=== PATIENT | male | born 1975 | race Caucasian/White ===

== ENCOUNTER 2024-08-23 05:48 | Inpatient (IN) | payer BC, SELFPAY ==
[2024-08-23] VITALS (18 sets, daily range): BP systolic 107–148; BP diastolic 56–105; PULSE 80–104; RESP 18–20; TEMP 36.5–36.6; O2SAT 88–97; BMI 25.8; BMI 24.0
--- NOTE | 2024-08-23 05:51 | XR_ITS ---
PROCEDURE INFORMATION: Exam: XR Chest Exam date and time: 08/23/2024 5:56 AM Age: 49 years old Clinical indication: Shortness of breath; Additional info: SOA TECHNIQUE: Imaging protocol: Radiologic exam of the chest. Views: 1 view. COMPARISON: No relevant prior studies available. FINDINGS: Lungs: Unremarkable. No consolidation. Pleural spaces: Flattening of the bilateral diaphragms with slight blunting of the bilateral costophrenic angles. Heart/Mediastinum: Unremarkable. No cardiomegaly. Bones/joints: Unremarkable. IMPRESSION: Hyperinflated lungs with possible small bilateral pleural effusions. No focal consolidation. Nonspecific findings.
--- NOTE | 2024-08-23 05:55 | ECG_ITS ---
APPROVED REPORT Exam: Resting ECG HR:105 bpm ECG Measurements Heart Rate 105 AXES SD 136 P 76 QRSd 94 QRS 88 QT 342 T 59 QTc 403 Conclusion SINUS TACHYCARDIA MODERATE ST DEPRESSION [0.05+ mV ST DEPRESSION] ABNORMAL ECG UNCONFIRMED REPORT Electronically signed by : NAILA HAYES, 08/25/2024 05:35:26
--- NOTE | 2024-08-23 05:57 | ED_ITS ---
Discharge Plan Disposition Patient Disposition: Admitted Chief Complaint: Shortness of Breath/Dyspnea Referrals Follow up/Referrals: Kim Willis APRN [Primary Care Provider] - See instructions Clinical Impressions Clinical Impression: Acute exacerbation of chronic obstructive pulmonary disease, Acute hypoxic respiratory failure Print Language Print Language: Hebrew Discharge ED Provider: Alton Sy <Alton Sy MD - Last Filed: 08/23/24 06:51> General Chief Complaint: Shortness of Breath/Dyspnea Stated Complaint: SOA Time Seen by Provider: 08/23/24 05:51 History of Present Illness HPI narrative: 49-year-old male with history of stage IV COPD was not on any home oxygen because according to he always passes walk test presents to the ER with severe shortness of breath, wheezing. reports for the last 24 hours he has intermittently had severe shortness of breath. Patient supports this statement. He denies any chest pain, headache, dizziness, nausea, vomiting, diarrhea, or abdominal pain. He denies fevers or chills. Patient has been using all of his multiple nebulized medications including budesonide, albuterol, rescue inhaler, etc. aggressively through the day without improvement of symptoms. When he presented to the ER, he was pursed lip breathing, red in the face, 87% on room air. Related Data Allergies Allergy/AdvReac Type Severity Reaction Status Date / Time No Known Allergies Allergy Unverified 10/28/17 14:31 PFS <Alton Sy MD - Last Filed: 08/23/24 06:51> [facility] Disclaimer: The information contained in this section may have been updated after the patient was seen, as this information can be updated by other users. Social History (Updated 08/23/24 @ 06:51 by Alton Sy MD) Smoking Status: Current some day smoker alcohol intake: never current occupational status: other Travel in the last 8 weeks: None <Alton Sy MD - Last Filed: 08/23/24 06:51> ROS Obtained: Yes All systems reviewed & no additional complaints except as documented Positive ROS per HPI Physical Exam <Alton Sy MD - Last Filed: 08/23/24 06:51> General General appearance: alert Comment: Patient appears to be in respiratory distress, pursed lip breathing, red in the face Head Head exam: atraumatic and normocephalic Eye Eye exam: Present PERRL and EOMI ENT ENT exam: Present mucous membranes moist Neck Neck exam: Present normal inspection and full ROM Chest Chest inspection: Present symmetric chest wall rise Respiratory Respiratory exam: Present respiratory distress (Significantly increased work of breathing), wheezes (Inspiratory and expiratory), accessory muscle use, prolonged expiratory phase and other (No rhonchi or rales); Absent stridor Cardiovascular Cardiovascular exam: Present normal rhythm and tachycardia Abdominal Exam Abdominal exam: Present soft; Absent distention or tenderness Extremities Exam Extremities exam: Present full ROM and other (2+ pulses in all extremities); Absent edema Neurological Exam Neurological exam: Present alert and oriented X3; Absent motor sensory deficit Psychiatric Psychiatric exam: Present normal affect and normal mood Skin Skin exam: Present warm and dry HEART Score <Alton Sy MD - Last Filed: 08/23/24 06:51> HEART Score HEART Score assessment performed?: Yes History (anamnesis): Slightly suspicious ECG: Non-specific disturbance Age: 45-65 years Risk factors: 1-2 risk factors Troponin: </= normal limit HEART Score: 3 <Kee Daniels MD - Last Filed: 08/23/24 08:34> HEART Score HEART Score: 3 Critical Care <Alton Sy MD - Last Filed: 08/23/24 06:51> Critical Care Time Critical Care Time: No <Kee Daniels MD - Last Filed: 08/23/24 08:34> Critical Care Time Critical Care Time: Yes Attestation: On 08/23/24, the high probability of a clinically significant, sudden or life threatening deterioration of the following system(s) required my full and direct attention, intervention and personal management. The time I documented below is in addition to time spent performing reported procedures but includes the following listed in this critical care notation. Total Time Total Critical Care Time: 35 Medical Decision Making <Alton Sy MD - Last Filed: 08/23/24 06:51> Sunday Inquiry Pt receiving controlled substance: No Vital Signs Vital Signs: 08/23/24 05:49 08/23/24 06:00 08/23/24 06:04 Temperature 97.9 F Temperature Source Oral Pulse Rate 95 H 94 H Pulse Rate [Right Radial] 88 Respiratory Rate 20 Blood Pressure 148/85 H Blood Pressure [Right Arm] 141/95 H Blood Pressure Mean [Right Arm] 110 Blood Pressure Source [Right Arm] Automatic Cuff 02 Sat by Pulse Oximetry 88 L 97 Oxygen Delivery Method Room Air 08/23/24 06:04 08/23/24 06:11 08/23/24 06:11 Temperature Temperature Source Pulse Rate 92 H 98 H 96 H Pulse Rate [Right Radial] Respiratory Rate Blood Pressure Blood Pressure [Right Arm] Blood Pressure Mean [Right Arm] Blood Pressure Source [Right Arm] 02 Sat by Pulse Oximetry Oxygen Delivery Method 08/23/24 06:18 08/23/24 06:18 08/23/24 06:30 Temperature Temperature Source Pulse Rate 98 H 95 H 99 H Pulse Rate [Right Radial] Respiratory Rate Blood Pressure 144/96 H Blood Pressure [Right Arm] Blood Pressure Mean [Right Arm] Blood Pressure Source [Right Arm] 02 Sat by Pulse Oximetry 95 Oxygen Delivery Method 08/23/24 07:00 08/23/24 07:30 08/23/24 08:01 Temperature Temperature Source Pulse Rate 97 H 99 H 96 H Pulse Rate [Right Radial] Respiratory Rate Blood Pressure 107/56 L 143/87 H 115/63 Blood Pressure [Right Arm] Blood Pressure Mean [Right Arm] Blood Pressure Source [Right Arm] 02 Sat by Pulse Oximetry 96 94 L 92 L Oxygen Delivery Method Room Air Room Air Room Air Lab Data Labs: Lab Results 08/23/24 05:55: NT-Pro-B Natriuret Pep < 20.0 08/23/24 05:57: WBC 5.8, RBC 4.53 L, Hgb 14.1, Hct 44.0, MCV 97.2 H, MCH 31.2, MCHC 32.1, RDW 14.4, Plt Count 288, MPV 7.2 L, Neut % (Auto) 57.2, Lymph % (Auto) 31.1, [place] % (Auto) 7.4, Eos % (Auto) 2.5, Baso % (Auto) 1.9, Neut # (Auto) 3.3, Lymph # (Auto) 1.8, [place] # (Auto) 0.4, Eos # (Auto) 0.1, Baso # (Auto) 0.1, Sodium 138, Potassium 4.3, Chloride 105, Carbon Dioxide 29, Anion Gap 8.3, BUN 13, Creatinine 0.70, Estimated Creat Clear 134, Estimated GFR 121, Est GFR ( Amer) 146, Glucose 96, Calcium 9.4, Total Bilirubin 0.5, AST 38, ALT 23, Alkaline Phosphatase 95, Troponin I < 0.01, Total Protein 7.7, Albumin 4.1, Globulin 3.6 H, Albumin/Globulin Ratio 1.1 08/23/24 06:12: VBG pH 7.33, VBG pCO2 47.4, VBG pO2 102.8 H, VBG HCO3 24.4, VBG Total CO2 25.9, VBG O2 Saturation 97.3 H, VBG Base Excess -1.5, VBG Lactic Acid 1.2 08/23/24 05:57 08/23/24 05:57 Response Orders (Tests/Meds): ED MEDICATIONS Generic Name Dose Route Start Last Admin Trade Name Freq PRN Reason Stop Dose Admin Albuterol/Ipratropium 3 ml 08/23/24 08:30 Ipratropium/Albuterol 3 Ml Neb 08/23/24 08:31 ONCE ONE Doxycycline Hyclate 100 mg/ 250 mls @ 166.667 mls/hr 08/23/24 08:28 Sodium Chloride IV 08/23/24 08:29 ONCE ONE Discontinued Medications Generic Name Dose Route Start Last Admin Trade Name Freq PRN Reason Stop Dose Admin Albuterol/Ipratropium 9 ml 08/23/24 05:51 08/23/24 06:04 Ipratropium/Albuterol 3 Ml Neb 08/23/24 05:52 9 ml ONCE ONE Administration Iopamidol 80 ml 08/23/24 06:55 08/23/24 06:56 Iopamidol-370 (76%);100ml Bottle IV 08/23/24 06:56 80 ml ONCE ONE Administration Methylprednisolone Sodium Succinate 125 mg 08/23/24 05:51 08/23/24 06:08 Methylprednisolone Sod Succ 125mg Vial IV 08/23/24 05:52 125 mg ONCE ONE Administration Sodium Chloride 50 ml 08/23/24 06:55 08/23/24 06:56 0.9 % Sodium Chloride 50 Ml Vial IV 08/23/24 06:56 50 ml ONCE ONE Administration Sodium Chloride 10 ml 08/23/24 06:55 08/23/24 06:56 Sodium Chloride 0.9% 10ml Syr (Rad Only) IV 08/23/24 06:56 10 ml ONCE ONE Administration ORDERS Category Date Time Status CT angio chest PE protocol Stat Cat Scan 08/23/24 06:24 Completed CXR --portable [XR chest portable] Stat Exams 08/23/24 05:51 Taken BNP [NT Pro Brain Natriuretic Pep.] Stat Lab 08/23/24 05:55 Completed CBC w/Auto Diff [Complete Blood Count Auto Diff] Stat Lab 08/23/24 05:57 Completed CMP [Comprehensive Metabolic Panel] Stat Lab 08/23/24 05:57 Completed Full Resp Panel w/COVID ([facility]) Routine Lab 08/23/24 06:11 Received HIV (1&2) Antibody Rapid Stat Lab 08/23/24 05:57 Received Hep C Ab with Reflex to RNA Stat Lab 08/23/24 05:57 Received Trop I [Troponin I] Stat Lab 08/23/24 05:57 Completed Troponin I Q3H Lab 08/23/24 09:00 Ordered Troponin I Q3H Lab 08/23/24 12:00 Ordered VBG [Venous Blood Gas] Stat RT 08/23/24 06:12 Completed MDM Narrative Medical Decision Narrative: In summary, this 49-year-old male with advanced COPD presents to the emergency department today with shortness of breath. On initial evaluation patient is in obvious respiratory distress with prolonged expiratory phase, accessory muscle use, hypoxic, red in the face, pursed lip breathing, but GCS 15, alert, oriented, wheezing throughout the lung iniguez, tachycardic, no peripheral edema, remainder of exam benign. Differential diagnosis includes but is not limited to ACS, COPD exacerbation, pneumonia, pneumothorax, viral syndrome, hypercarbia, hypoxia. Based on these concerns, I ordered cardiac workup, serum labs, VBG, breathing treatments. ECG personally interpreted demonstrates sinus tachycardia, rate 105, normal axis, normal NC and QTc, no STEMI. Patient received DuoNebs, Solu-Medrol initially for treatment. Labs personally reviewed demonstrate no leukocytosis or anemia, platelets normal at 288, VBG with normal pH, no hypercarbia, this does increase my suspicion for other etiology of patient's shortness of breath including the possibility of PE since patient is tachycardic and hypoxic. CTA PE added to workup. CMP nonactionable. proBNP undetectably low at less than 20. Reassuring against fluid overload. Initial troponin undetectably low at less than 0.01. XR personally interpreted demonstrates hyperinflation of the lungs without discrete focal airspace disease, patient does have slight blunting of the left costophrenic angle, possible small pleural effusion. Radiology read pending Radiology studies pending at the time of physician shift change. Patient handed off to Dr. Daniels for further management and disposition. <Kee Daniels MD - Last Filed: 08/23/24 08:34> Vital Signs Vital Signs: 08/23/24 05:49 08/23/24 06:00 08/23/24 06:04 Temperature 97.9 F Temperature Source Oral Pulse Rate 95 H 94 H Pulse Rate [Right Radial] 88 Respiratory Rate 20 Blood Pressure 148/85 H Blood Pressure [Right Arm] 141/95 H Blood Pressure Mean [Right Arm] 110 Blood Pressure Source [Right Arm] Automatic Cuff 02 Sat by Pulse Oximetry 88 L 97 Oxygen Delivery Method Room Air 08/23/24 06:04 08/23/24 06:11 08/23/24 06:11 Temperature Temperature Source Pulse Rate 92 H 98 H 96 H Pulse Rate [Right Radial] Respiratory Rate Blood Pressure Blood Pressure [Right Arm] Blood Pressure Mean [Right Arm] Blood Pressure Source [Right Arm] 02 Sat by Pulse Oximetry Oxygen Delivery Method 08/23/24 06:18 08/23/24 06:18 08/23/24 06:30 Temperature Temperature Source Pulse Rate 98 H 95 H 99 H Pulse Rate [Right Radial] Respiratory Rate Blood Pressure 144/96 H Blood Pressure [Right Arm] Blood Pressure Mean [Right Arm] Blood Pressure Source [Right Arm] 02 Sat by Pulse Oximetry 95 Oxygen Delivery Method 08/23/24 07:00 08/23/24 07:30 08/23/24 08:01 Temperature Temperature Source Pulse Rate 97 H 99 H 96 H Pulse Rate [Right Radial] Respiratory Rate Blood Pressure 107/56 L 143/87 H 115/63 Blood Pressure [Right Arm] Blood Pressure Mean [Right Arm] Blood Pressure Source [Right Arm] 02 Sat by Pulse Oximetry 96 94 L 92 L Oxygen Delivery Method Room Air Room Air Room Air Lab Data Lab results reviewed: Yes I reviewed the patient's lab results. Labs: Lab Results 08/23/24 05:55: NT-Pro-B Natriuret Pep < 20.0 08/23/24 05:57: WBC 5.8, RBC 4.53 L, Hgb 14.1, Hct 44.0, MCV 97.2 H, MCH 31.2, MCHC 32.1, RDW 14.4, Plt Count 288, MPV 7.2 L, Neut % (Auto) 57.2, Lymph % (Auto) 31.1, [place] % (Auto) 7.4, Eos % (Auto) 2.5, Baso % (Auto) 1.9, Neut # (Auto) 3.3, Lymph # (Auto) 1.8, [place] # (Auto) 0.4, Eos # (Auto) 0.1, Baso # (Auto) 0.1, Sodium 138, Potassium 4.3, Chloride 105, Carbon Dioxide 29, Anion Gap 8.3, BUN 13, Creatinine 0.70, Estimated Creat Clear 134, Estimated GFR 121, Est GFR ( Amer) 146, Glucose 96, Calcium 9.4, Total Bilirubin 0.5, AST 38, ALT 23, Alkaline Phosphatase 95, Troponin I < 0.01, Total Protein 7.7, Albumin 4.1, Globulin 3.6 H, Albumin/Globulin Ratio 1.1 08/23/24 06:12: VBG pH 7.33, VBG pCO2 47.4, VBG pO2 102.8 H, VBG HCO3 24.4, VBG Total CO2 25.9, VBG O2 Saturation 97.3 H, VBG Base Excess -1.5, VBG Lactic Acid 1.2 Response Orders (Tests/Meds): ED MEDICATIONS Generic Name Dose Route Start Last Admin Trade Name Freq PRN Reason Stop Dose Admin Albuterol/Ipratropium 3 ml 08/23/24 08:30 Ipratropium/Albuterol 3 Ml [facility] 08/23/24 08:31 ONCE ONE Doxycycline Hyclate 100 mg/ 250 mls @ 166.667 mls/hr 08/23/24 08:28 Sodium Chloride IV 08/23/24 08:29 ONCE ONE Discontinued Medications Generic Name Dose Route Start Last Admin Trade Name Freq PRN Reason Stop Dose Admin Albuterol/Ipratropium 9 ml 08/23/24 05:51 08/23/24 06:04 Ipratropium/Albuterol 3 Ml [facility] 08/23/24 05:52 9 ml ONCE ONE Administration Iopamidol 80 ml 08/23/24 06:55 08/23/24 06:56 Iopamidol-370 (76%);100ml Bottle IV 08/23/24 06:56 80 ml ONCE ONE Administration Methylprednisolone Sodium Succinate 125 mg 08/23/24 05:51 08/23/24 06:08 Methylprednisolone Sod Succ 125mg Vial IV 08/23/24 05:52 125 mg ONCE ONE Administration Sodium Chloride 50 ml 08/23/24 06:55 08/23/24 06:56 0.9 % Sodium Chloride 50 Ml Vial IV 08/23/24 06:56 50 ml ONCE ONE Administration Sodium Chloride 10 ml 08/23/24 06:55 08/23/24 06:56 Sodium Chloride 0.9% 10ml Syr (Rad Only) IV 08/23/24 06:56 10 ml ONCE ONE Administration ORDERS Category Date Time Status CT angio chest PE protocol Stat Cat Scan 08/23/24 06:24 Completed CXR --portable [XR chest portable] Stat Exams 08/23/24 05:51 Taken BNP [NT Pro Brain Natriuretic Pep.] Stat Lab 08/23/24 05:55 Completed CBC w/Auto Diff [Complete Blood Count Auto Diff] Stat Lab 08/23/24 05:57 Completed CMP [Comprehensive Metabolic Panel] Stat Lab 08/23/24 05:57 Completed Full Resp Panel w/COVID ([facility]) Routine Lab 08/23/24 06:11 Received HIV (1&2) Antibody Rapid Stat Lab 08/23/24 05:57 Received Hep C Ab with Reflex to RNA Stat Lab 08/23/24 05:57 Received Trop I [Troponin I] Stat Lab 08/23/24 05:57 Completed Troponin I Q3H Lab 08/23/24 09:00 Ordered Troponin I Q3H Lab 08/23/24 12:00 Ordered VBG [Venous Blood Gas] Stat RT 08/23/24 06:12 Completed MDM Narrative Medical Decision Narrative: In summary, this 49-year-old male with advanced COPD presents to the emergency department today with shortness of breath. On initial evaluation patient is in obvious respiratory distress with prolonged expiratory phase, accessory muscle use, hypoxic, red in the face, pursed lip breathing, but GCS 15, alert, oriented, wheezing throughout the lung iniguez, tachycardic, no peripheral edema, remainder of exam benign. Differential diagnosis includes but is not limited to ACS, COPD exacerbation, pneumonia, pneumothorax, viral syndrome, hypercarbia, hypoxia. Based on these concerns, I ordered cardiac workup, serum labs, VBG, breathing treatments. ECG personally interpreted demonstrates sinus tachycardia, rate 105, normal axis, normal NC and QTc, no STEMI. Patient received DuoNebs, Solu-Medrol initially for treatment. Labs personally reviewed demonstrate no leukocytosis or anemia, platelets normal at 288, VBG with normal pH, no hypercarbia, this does increase my suspicion for other etiology of patient's shortness of breath including the possibility of PE since patient is tachycardic and hypoxic. CTA PE added to workup. CMP nonactionable. proBNP undetectably low at less than 20. Reassuring against fluid overload. Initial troponin undetectably low at less than 0.01. XR personally interpreted demonstrates hyperinflation of the lungs without discrete focal airspace disease, patient does have slight blunting of the left costophrenic angle, possible small pleural effusion. Radiology read pending Radiology studies pending at the time of physician shift change. Patient handed off to Dr. Daniels for further management and disposition. Reassessment this is Dr. Daniels I took over from Dr. Sy at [address] scan performed which I personally interpreted which does not demonstrate any pulmonary embolism or acute cardiopulmonary abnormalities. However on my reassessment patient still is working very hard and is tight. He is still on nasal cannula came in with hypoxic respiratory failure. This is primarily however a work of breathing issue. No acute hypercarbia at the moment. Continuous neb has been ordered I added IV doxycycline on. Patient will need to be admitted for further management of his COPD exacerbation and acute hypoxic respiratory failure.
[2024-08-23] MEDS: IPRATROPIUM/ALBUTEROL 3 ML NEB 9 ML IH (06:04)
[2024-08-23 06:06] LABS: Basophils # 0.1 K/mm3 (0-0.2); Basophils % 1.9 % (0.1-2.0); Eosinophils # 0.1 K/mm3 (0.0-0.4); Eosinophils % 2.5 % (0.1-12.0); Hemoglobin 14.1 g/dL (14.1-18.0); Lymphocytes # 1.8 K/mm3 (0.7-4.5); Lymphocytes % 31.1 % (10-50); Mean Corpuscular HGB Conc 32.1 g/dL (31.8-35.4); Mean Corpuscular Hemoglobin 31.2 pg (27.0-31.2); Mean Corpuscular Volume 97.2 fl (80-94); Mean Platelet Volume 7.2 fl (7.4-10.4); Monocytes # 0.4 K/mm3 (0.1-1.0); Monocytes % 7.4 % (1.7-9.3); Neutrophils # 3.3 K/mm3 (1.8-7.8); Neutrophils % 57.2 % (37.0-80.0); Platelet Count 288 K/mm3 (142-424); Red Blood Count 4.53 M/mm3 (4.60-6.20); Red Cell Distribution Width 14.4 % (11.5-17.5); White Blood Count 5.8 K/mm3 (4.8-10.8)
[2024-08-23] MEDS: METHYLPREDNISOLONE SOD SUCC 125MG VIAL 125 MG IV (06:08)
[2024-08-23 06:11] LABS: Chloride 105 mmol/L (98-107)
[2024-08-23 06:12] LABS: Albumin Level 4.1 g/dl (3.5-5.0); Potassium 4.3 mmoL/L (3.5-5.1); Sodium 138 mmol/L (136-145)
[2024-08-23 06:14] LABS: Alanine Aminotransferase 23 U/L (12-78); Anion Gap 8.3 mEq/L (5-15); Aspartate Amino Transferase 38 U/L (17-59); Blood Urea Nitrogen 13 mg/dl (9-20); Carbon Dioxide 29 mmol/L (22.0-30.0); Creatinine Clearance Estimated 134 mL/min (50-200); Estimated Glomerular Filt Rate 121 ml/min (>60); GFR (African American) 146 ML/MIN (>60)
[2024-08-23 06:15] LABS: Albumin/Globulin Ratio 1.1 (1.1-1.8); Alkaline Phosphatase 95 U/L (38-126); Bilirubin,Total 0.5 mg/dl (0.2-1.3); Calcium 9.4 mg/dl (8.4-10.2); Globulin 3.6 g/dL (1.3-3.2); Glucose 96 mg/dl (74-100); Total Protein,Serum 7.7 g/dl (6.3-8.2)
[2024-08-23 06:15] LABS: Adenovirus,PCR Not Detected (NotDetected); Bordetella Pertussis Not Detected (NotDetected); Chlamydophila Pneumoniae, PCR Not Detected (NotDetected); Coronavirus 19, PCR Not Detected (NotDetected); Coronavirus 229E Not Detected (NotDetected); Coronavirus NL63 Not Detected (NotDetected); Coronavirus OC43 Not Detected (NotDetected); Coronovirus HKU1,PCR Not Detected (NotDetected); Human Metapneumovirus Not Detected (NotDetected); Influenza A, PCR Not Detected (NotDetected); Influenza AH1, 2009 Not Detected (NotDetected); Influenza AH1, PCR Not Detected (NotDetected); Influenza AH3,PCR Not Detected (NotDetected); Influenza B, PCR Not Detected (NotDetected); Mycoplasma Pneumoniae, PCR Not Detected (NotDetected); Parainfluenza 1, PCR Not Detected (NotDetected); Parainfluenza 2, PCR Not Detected (NotDetected); Parainfluenza 3, PCR Not Detected (NotDetected); Parainfluenza 4, PCR Not Detected (NotDetected); Respiratory Syncytial Virus Not Detected (NotDetected); Rhinovirus/Enterovirus Not Detected (NotDetected)
[2024-08-23 06:17] LABS: Lactate Venous 1.2 mmol/L (0.4-2.0); VBG Base Excess -1.5 mmol/L (-2.4-2.3); VBG HCO3 24.4 mmol/L (23-30); VBG Oxygen Saturation 97.3 % (50-70); VBG PCO2 47.4 mmol/L (35-51); VBG PH 7.33 mmol/L (7.31-7.41); VBG PO2 102.8 mmol/L (28-40); VBG Total CO2 25.9 mmol/L (23-27)
--- NOTE | 2024-08-23 06:24 | CT_ITS ---
FINAL REPORT TECHNIQUE: The patient was injected with IV contrast. Axial images were obtained through the chest in a PE protocol. 3-D reconstruction images were also performed. Individualized dose reduction techniques using automated exposure control or adjustment of the MA and/or KV according to patient's size were employed. CLINICAL HISTORY: soa tachy FINDINGS: Images are somewhat degraded by patient motion. Mediastinal vasculature is adequately opacified. No pulmonary artery filling defects are identified to suggest PE. There is no aortic dissection. There is no axillary adenopathy. There is no hilar or mediastinal adenopathy. The heart size is normal. There is no pericardial or pleural effusion. Limited images of the upper abdomen are unremarkable. No suspicious infiltrate or nodule is identified. There is minimal scarring in the lung apices. IMPRESSION: No pulmonary embolus or dissection. Reviewed, Interpreted and Dictated by López Álvarez MD Transcribed by Erin Gutierrez Authenticated and [facility]
[2024-08-23 06:29] LABS: Troponin I < 0.01 ng/ml (0.00-0.034)
--- NOTE | 2024-08-23 06:42 | PC.NURSE ---
patient to radiology
[2024-08-23 06:43] LABS: NT Pro Brain Natriuretic Pep. < 20.0 pg/mL (0-125)
--- NOTE | 2024-08-23 06:50 | PC.NURSE ---
patient back from radiology
[2024-08-23] MEDS: SODIUM CHLORIDE 0.9% 10ML SYR (RAD ONLY) 10 ML IV (06:56)
[2024-08-23] MEDS: IOPAMIDOL-370 (76%);100ML BOTTLE 80 ML IV (06:56)
[2024-08-23] MEDS: 0.9 % SODIUM CHLORIDE 50 ML VIAL IV (06:56)
--- NOTE | 2024-08-23 08:38 | PC.NURSE ---
clothing supervisor notified of admission.
[2024-08-23] MEDS: ALBUTEROL 0.083% 2.5 MG/3 ML NEB 20 MG IH (09:00)
[2024-08-23] MEDS: DOXYCYCLINE HYCLATE 100 MG in 0.9 % SODIUM CHLORIDE 250 ML 166.667 MG IV ×2 (09:04→19:49)
--- NOTE | 2024-08-23 09:08 | PC.NURSE ---
Report called to Mary Jo Aldridge RN
--- NOTE | 2024-08-23 09:15 | EXP.HP ---
History of Present Illness *Admission Date: 08/23/24 *Reason for visit:: Dyspnea *History of present illness: Mr. Varghese is a 49-year-old male with extensive smoking history. Smokes 1 to 2 packs a day. Has significant history of COPD. Per his report he has stage IV COPD. Denies any home oxygen at this time but has been on oxygen for exacerbations in the past. Presented to the ER with worsening shortness of breath, wheezing. Symptoms worsen over the past 24 to 48 hours. Denies any nausea or vomiting. No chest pain. Has been using his inhalers at home. Continues to smoke. He denies any chest pain, headache, dizziness, nausea, vomiting, diarrhea, or abdominal pain. On arrival to the ER, patient noted to have facial plethora and hypoxia in the mid 80s. Workup concerning for COPD exacerbation with hypoxia and new oxygen requirement. Very poor air movement. Required multiple [id number] nebulizers with no significant improvement in wheezing and air movement. Medicine consulted for admission and further treatment. On arrival to the floor, patient still in mild distress. Significantly wheezy on exam. Using accessory muscles to breathe. [facility] Disclaimer: The information contained in this section may have been updated after the patient was seen, as this information can be updated by other users. Medical History Sleep apnea Ulcerative colitis COPD (chronic obstructive pulmonary disease) Social History Smoking Status: Current some day smoker alcohol intake: never current occupational status: other Travel in the last 8 weeks: None Review of Systems Review of Systems Review of systems (narrative): 14 point review of systems performed, pertinent positives and negatives as per HPI Meds Home Medications and Allergies Home Medications ?Medication ?Instructions ?Recorded ?Confirmed ?Type budesonide 0.5 mg/2 mL suspension 0.5 mg inhalation QIDP PRN lung 08/23/24 08/23/24 History for nebulization inflammation cyanocobalamin (vitamin B-12) 1,000 mcg IM WEEKLY Supplement 08/23/24 08/23/24 History 1,000 mcg/mL injection solution folic acid 1 mg tablet 1 mg PO DAILY 08/23/24 08/23/24 History formoterol fumarate 20 mcg/2 mL 20 mcg inhalation QIDP PRN lung 08/23/24 08/23/24 History solution for nebulization inflammation guaifenesin 600 mg tablet, 600 mg PO BID 08/23/24 08/23/24 History extended release 12 hr (Mucinex) montelukast 10 mg tablet 10 mg PO DAILY 08/23/24 08/23/24 History (Singulair) omeprazole 20 mg capsule,delayed 20 mg PO DAILY 08/23/24 08/23/24 History release revefenacin 175 mcg/3 mL solution 175 mcg inhalation DAILY 08/23/24 08/23/24 History for nebulization (Yupelri) roflumilast 500 mcg tablet 500 mcg PO DAILY 08/23/24 08/23/24 History vedolizumab 300 mg intravenous 300 mg IV MONTHLY 08/23/24 08/23/24 History solution (Entyvio) New Prescriptions to Start Prescriptions: Allergies Allergy/AdvReac Type Severity Reaction Status Date / Time coconut Allergy Anaphylaxis Verified 08/23/24 10:04 mesalamine AdvReac Irritable Verified 08/23/24 10:03 Exam Data for Last 24 hours Vital signs and Labs for Last 24 Hours: Temp Pulse Resp BP Pulse Ox O2 Del Method 97.9 F 104 H 20 134/79 96 Nasal Cannula 08/23/24 05:49 08/23/24 08:30 08/23/24 05:49 08/23/24 08:30 08/23/24 08:30 08/23/24 08:30 Laboratory Results - last 24 hr 08/23/24 05:55: NT-Pro-B Natriuret Pep < 20.0 08/23/24 05:57: WBC 5.8, RBC 4.53 L, Hgb 14.1, Hct 44.0, MCV 97.2 H, MCH 31.2, MCHC 32.1, RDW 14.4, Plt Count 288, MPV 7.2 L, Neut % (Auto) 57.2, Lymph % (Auto) 31.1, [place] % (Auto) 7.4, Eos % (Auto) 2.5, Baso % (Auto) 1.9, Neut # (Auto) 3.3, Lymph # (Auto) 1.8, [place] # (Auto) 0.4, Eos # (Auto) 0.1, Baso # (Auto) 0.1, Sodium 138, Potassium 4.3, Chloride 105, Carbon Dioxide 29, Anion Gap 8.3, BUN 13, Creatinine 0.70, Estimated Creat Clear 134, Estimated GFR 121, Est GFR ( Amer) 146, Glucose 96, Calcium 9.4, Total Bilirubin 0.5, AST 38, ALT 23, Alkaline Phosphatase 95, Troponin I < 0.01, Total Protein 7.7, Albumin 4.1, Globulin 3.6 H, Albumin/Globulin Ratio 1.1 08/23/24 06:12: VBG pH 7.33, VBG pCO2 47.4, VBG pO2 102.8 H, VBG HCO3 24.4, VBG Total CO2 25.9, VBG O2 Saturation 97.3 H, VBG Base Excess -1.5, VBG Lactic Acid 1.2 I & O for Last 24 hours: Intake & Output 08/20/24 08/21/24 08/22/24 08/23/24 23:59 23:59 23:59 23:59 Weight 72.575 kg Constitutional Constitutional: mild distress, average body habitus, chronically ill appearing and cooperative *Routine HEENT Exam Head: Present normocephalic Eye: Present EOMI and PERRL ENT: Present mucous membranes moist *Routine Neck Exam Neck: Present supple; Absent lymphadenopathy Routine Chest/Breast/Axilla Exam Comments: Barrel chested *Routine Respiratory Exam Respiratory: Present accessory muscle use, prolonged expiratory phase, rhonchi, wheezes and diminished air movement; Absent crackles or normal respiratory effort *Routine Cardiovascular Exam Cardiovascular: Present RRR *Routine Abdominal Exam Abdominal: Present soft and normoactive bowel sounds; Absent tenderness *Routine Rectal Exam Rectal:: deferred *Routine Genitalia Exam Genitalia:: deferred *Routine Extremities Exam Extremities: Absent cyanosis, clubbing or edema *Routine Skin Exam Skin: Present intact and warm; Absent rash *Routine Neurological Exam Neurological: Present alert, oriented X3 and moving all extremities; Absent altered mental status Assessment and Plan *Assessment and plan (1) Acute hypoxic respiratory failure: Status: Acute Category: Medical Code(s): J96.01 - Acute respiratory failure with hypoxia (2) Acute exacerbation of chronic obstructive pulmonary disease: Status: Acute Category: Medical Code(s): J44.1 - Chronic obstructive pulmonary disease with (acute) exacerbation (3) Ulcerative colitis: Status: Chronic Category: Medical Code(s): K51.90 - Ulcerative colitis, unspecified, without complications (4) Tobacco use disorder: Status: Acute Category: Medical Code(s): F17.200 - Nicotine dependence, unspecified, uncomplicated Plan 49-year-old male with history of COPD, tobacco use disorder, UC. Presented to the ER with worsening shortness of breath. Discussed case with ER physician, request admission for COPD exacerbation and new oxygen requirement. I agreed to admit for further management. O2 sats in the mid 80s on arrival. Currently on 2 L nasal cannula oxygen. Necessitating nebulizer every 4 hours. Started on IV steroids with methylprednisolone in the ER. Necessitating inpatient management due to his respiratory distress. Problems addressed as follows: Acute hypoxemic respiratory failure Acute exacerbation of COPD -Initiate DuoNebs every 4 hours, budesonide twice daily, methylprednisolone 60 mg twice daily -Supplemental oxygen as needed, goal sats greater than 90%, currently on 2 L -Given his persistent shortness of breath, will administer Xopenex as needed every 6 hours between scheduled nebulizers. -Resume home regimen for stage COPD including Singulair 10 mg daily, Yupelri 175 mcg inhaled daily, and Roflumilast 500 mcg daily -CBC, CMP, magnesium ordered for the morning. - White count normal at 5.8, blood gas showing normal pH on VBG of 7.33, pCO2 47, kidney function electrolytes normal with BUN 13, creatinine 0.7. Comprehensive respiratory panel negative for analytes. Per my review of CT of chest and chest x-ray, no focal consolidation or airspace disease. Does have hyperexpansion and COPD on imaging Omeprazole for GERD Full code Regular diet
--- NOTE | 2024-08-23 09:50 | PC.NURSE ---
arrived by w/c from ED
[2024-08-23] MEDS: IPRATROPIUM/ALBUTEROL 3 ML NEB IH ×4 (11:10→22:13)
--- NOTE | 2024-08-23 12:03 | HMH.PHAINT1 ---
Pharmacy Intervention Comments: home medication list verified using list from outpatient pharmacy
[2024-08-23 14:46] LABS: HIV (1&2) Antibody Rapid NONREACTIVE (NONREACTIVE)
[2024-08-23] MEDS: BUDESONIDE 0.5MG/2ML NEB 0.5 MG IH (18:07)
[2024-08-23] MEDS: METHYLPREDNISOLONE SOD SUCC 125MG VIAL 60 MG IV (19:49)
[2024-08-23] MEDS: MONTELUKAST SODIUM 10MG TAB 10 MG PO (20:18)
[2024-08-23] MEDS: PANTOPRAZOLE 40MG TABLET 40 MG PO (20:18)
[2024-08-24] VITALS (8 sets, daily range): BP systolic 128–155; BP diastolic 71–91; PULSE 80–99; RESP 18–20; TEMP 36.3–36.7; O2SAT 92–100; BMI 24.1
[2024-08-24] MEDS: IPRATROPIUM/ALBUTEROL 3 ML NEB IH ×6 (02:22→21:50)
--- NOTE | 2024-08-24 04:02 | PC.NURSE ---
49 yo male pt is A/O X 4. He wears 02 at 2 liters per nc and uses CPAP at night. He continues to have SOA with minimal activity including ambulating the short distance to the BR. Antibiotics in infused per JAN.
[2024-08-24] MEDS: BUDESONIDE 0.5MG/2ML NEB 0.5 MG IH ×2 (06:21→16:09)
[2024-08-24 06:51] LABS: Basophils % 0.1 % (0.1-2.0); Hematocrit 45.3 % (42.0-52.0); Hemoglobin 14.3 g/dL (14.1-18.0); Lymphocytes # 0.8 K/mm3 (0.7-4.5); Lymphocytes % 16.1 % (10-50); Mean Corpuscular HGB Conc 31.5 g/dL (31.8-35.4); Mean Corpuscular Hemoglobin 31.3 pg (27.0-31.2); Mean Corpuscular Volume 99.4 fl (80-94); Mean Platelet Volume 7.5 fl (7.4-10.4); Monocytes # 0.3 K/mm3 (0.1-1.0); Monocytes % 6.5 % (1.7-9.3); Neutrophils # 3.8 K/mm3 (1.8-7.8); Neutrophils % 77.4 % (37.0-80.0); Platelet Count 296 K/mm3 (142-424); Red Blood Count 4.56 M/mm3 (4.60-6.20); Red Cell Distribution Width 14.3 % (11.5-17.5); White Blood Count 4.9 K/mm3 (4.8-10.8)
[2024-08-24 06:58] LABS: Chloride 106 mmol/L (98-107)
[2024-08-24 06:59] LABS: Albumin Level 4.2 g/dl (3.5-5.0); Potassium 4.7 mmoL/L (3.5-5.1); Sodium 140 mmol/L (136-145)
[2024-08-24 07:01] LABS: Blood Urea Nitrogen 13 mg/dl (9-20); Creatinine Clearance Estimated 126 mL/min (50-200); Estimated Glomerular Filt Rate 121 ml/min (>60); GFR (African American) 146 ML/MIN (>60)
[2024-08-24 07:02] LABS: Alanine Aminotransferase 21 U/L (12-78); Albumin/Globulin Ratio 1.3 (1.1-1.8); Alkaline Phosphatase 93 U/L (38-126); Anion Gap 8.7 mEq/L (5-15); Aspartate Amino Transferase 36 U/L (17-59); Bilirubin,Total 0.3 mg/dl (0.2-1.3); Calcium 9.8 mg/dl (8.4-10.2); Carbon Dioxide 30 mmol/L (22.0-30.0); Globulin 3.3 g/dL (1.3-3.2); Glucose 129 mg/dl (74-100); Magnesium 2.2 mg/dl (1.6-2.3); Total Protein,Serum 7.5 g/dl (6.3-8.2)
[2024-08-24] MEDS: METHYLPREDNISOLONE SOD SUCC 125MG VIAL 60 MG IV ×2 (07:25→19:54)
[2024-08-24] MEDS: DOXYCYCLINE HYCLATE 100 MG in 0.9 % SODIUM CHLORIDE 250 ML 166.667 MG IV ×2 (07:25→19:54)
[2024-08-24] MEDS: ROFLUMILAST 500 MCG PO (08:02)
[2024-08-24] MEDS: FOLIC ACID 1MG TABLET 1 MG PO (08:02)
[2024-08-24 08:19] LABS: HCV Ab Non Reactive (Non Reactive)
[2024-08-24] MEDS: SODIUM CHLORIDE 3% 15ML NEB 3 ML IH (14:32)
[2024-08-24] MEDS: LEVALBUTEROL 1.25MG/3ML NEB 1.25 MG IH (16:09)
[2024-08-24 16:29] LABS: Lactate Venous 1.6 mmol/L (0.4-2.0); VBG Base Excess 2.3 mmol/L (-2.4-2.3); VBG Oxygen Saturation 82.1 % (50-70); VBG PCO2 52.4 mmol/L (35-51); VBG PH 7.35 mmol/L (7.31-7.41); VBG PO2 46.8 mmol/L (28-40); VBG Total CO2 29.6 mmol/L (23-27)
[2024-08-24 16:41] LABS: Adenovirus,PCR Not Detected (NotDetected); Bordetella Pertussis Not Detected (NotDetected); Chlamydophila Pneumoniae, PCR Not Detected (NotDetected); Coronavirus 19, PCR Not Detected (NotDetected); Coronavirus 229E Not Detected (NotDetected); Coronavirus NL63 Not Detected (NotDetected); Coronavirus OC43 Not Detected (NotDetected); Coronovirus HKU1,PCR Not Detected (NotDetected); Human Metapneumovirus Not Detected (NotDetected); Influenza A, PCR Not Detected (NotDetected); Influenza AH1, 2009 Not Detected (NotDetected); Influenza AH1, PCR Not Detected (NotDetected); Influenza AH3,PCR Not Detected (NotDetected); Influenza B, PCR Not Detected (NotDetected); Mycoplasma Pneumoniae, PCR Not Detected (NotDetected); Parainfluenza 1, PCR Not Detected (NotDetected); Parainfluenza 2, PCR Not Detected (NotDetected); Parainfluenza 3, PCR Not Detected (NotDetected); Parainfluenza 4, PCR Not Detected (NotDetected); Respiratory Syncytial Virus Not Detected (NotDetected); Rhinovirus/Enterovirus Not Detected (NotDetected)
[2024-08-24] MEDS: ACETAMINOPHEN 325MG TAB 650 MG PO (16:55)
--- NOTE | 2024-08-24 18:20 | PC.NURSE ---
A/O X 4. He wears 02 at 2 liters per nc and uses CPAP at night. was increased to 3L nc multiple times throughout the shift for comfort measures due to complaints of shortness of breath. continues to have SOA with minimal activity including ambulating the short distance to the BR. abx given per jan. treated per jan for headache. sputum and full resp panel swab sent to lab this shift. breathing treatments administered per jan. no complaints at this time. call light within reach.
[2024-08-24] MEDS: MONTELUKAST SODIUM 10MG TAB 10 MG PO (20:18)
[2024-08-24] MEDS: PANTOPRAZOLE 40MG TABLET 40 MG PO (20:18)
--- NOTE | 2024-08-24 21:28 | P.PN_ITS ---
Subjective *Date: 08/24/24 *Time: 21:28 Interval history: COntinued to have increased work on breathing, audible wheezing. Exam Data for Last 24 hours Vital signs and Labs for Last 24 Hours: Temp Pulse Resp BP Pulse Ox O2 Del Method O2 Flow Rate 97.4 F L 92 H 18 155/91 H 100 Nasal Cannula 2 08/24/24 20:00 08/24/24 20:00 08/24/24 20:00 08/24/24 20:00 08/24/24 20:00 08/24/24 21:00 08/24/24 21:00 Laboratory Results - last 24 hr 08/23/24 05:57: Hepatitis C Antibody Non reactive 08/24/24 06:05: WBC 4.9, RBC 4.56 L, Hgb 14.3, Hct 45.3, MCV 99.4 H, MCH 31.3 H, MCHC 31.5 L, RDW 14.3, Plt Count 296, MPV 7.5, Neut % (Auto) 77.4, Lymph % (Auto) 16.1, [place] % (Auto) 6.5, Eos % (Auto) 0.0 L, Baso % (Auto) 0.1, Neut # (Auto) 3.8, Lymph # (Auto) 0.8, [place] # (Auto) 0.3, Eos # (Auto) 0.0, Baso # (Auto) 0.0, Sodium 140, Potassium 4.7, Chloride 106, Carbon Dioxide 30, Anion Gap 8.7, BUN 13, Creatinine 0.70, Estimated Creat Clear 126, Estimated GFR 121, Est GFR ( Amer) 146, Glucose 129 H, Calcium 9.8, Magnesium 2.2, Total Bilirubin 0.3, AST 36, ALT 21, Alkaline Phosphatase 93, Total Protein 7.5, Albumin 4.2, Globulin 3.3 H, Albumin/Globulin Ratio 1.3 08/24/24 16:09: VBG pH 7.35, VBG pCO2 52.4 H, VBG pO2 46.8 H, VBG HCO3 28.0, VBG Total CO2 29.6 H, VBG O2 Saturation 82.1 H, VBG Base Excess 2.3, VBG Lactic Acid 1.6 08/24/24 16:35: Chlamy pneumoniae PCR Not detected, Adenovirus (PCR) Not detected, B. pertussis DNA (PCR) Not detected, Coronavirus OC43 (PCR) Not detected, Coronavirus HKU1 (PCR) Not detected, Coronavirus 229E (PCR) Not detected, SARS-CoV-2 (PCR) Not detected, Coronavirus NL63 (PCR) Not detected, Human Metapneumovir PCR Not detected, Influenza A (H1) PCR Not detected, Influ A (H1N1/09) PCR Not detected, Influenza A (H3) PCR Not detected, Influenza Type A (PCR) Not detected, Influenza Type B (PCR) Not detected, M. pneumoniae (PCR) Not detected, Parainfluenza 1 (PCR) Not detected, Parainfluenza 2 (PCR) Not detected, Parainfluenza 3 (PCR) Not detected, Parainfluenza 4 (PCR) Not detected, RSV (PCR) Not detected, Entero/Rhino (PCR) Not detected I & O for Last 24 hours: Intake & Output 08/21/24 08/22/24 08/23/24 08/24/24 23:59 23:59 23:59 23:59 Intake Total 890 / 890 2280 / 2280 Output Total 0 / 0 0 / 0 Balance 890 / 890 2280 / 2280 Weight 68.039 kg 68.175 kg Constitutional Constitutional: no acute distress *Routine HEENT Exam Head: Present normocephalic Eye: Present EOMI and PERRL ENT: Present mucous membranes moist *Routine Neck Exam Neck: Present supple; Absent lymphadenopathy *Routine Respiratory Exam Respiratory: Present wheezes; Absent CTA bilaterally Comments: INcreased work on breathing, wheezing. *Routine Cardiovascular Exam Cardiovascular: Present RRR *Routine Abdominal Exam Abdominal: Present soft and normoactive bowel sounds; Absent tenderness *Routine Extremities Exam Extremities: Absent cyanosis, clubbing or edema *Routine Skin Exam Skin: Present warm; Absent rash *Routine Neurological Exam Neurological: Present alert and oriented X3 Assessment and Plan *Assessment and plan (1) Acute hypoxic respiratory failure: Status: Acute Category: Medical Code(s): J96.01 - Acute respiratory failure with hypoxia (2) Acute exacerbation of chronic obstructive pulmonary disease: Status: Acute Category: Medical Code(s): J44.1 - Chronic obstructive pulmonary disease with (acute) exacerbation Plan 49-year-old male with history of COPD, tobacco use disorder, UC. Presented to the ER with worsening shortness of breath. Discussed case with ER physician, request admission for COPD exacerbation and new oxygen requirement. I agreed to admit for further management. O2 sats in the mid 80s on arrival. Currently on 2 L nasal cannula oxygen. Necessitating nebulizer every 4 hours. Started on IV steroids with methylprednisolone in the ER. Necessitating inpatient management due to his respiratory distress. Problems addressed as follows: Acute hypoxemic respiratory failure Acute exacerbation of COPD - Patient continues to have increased work on breathing, audible wheezing. VBG reassuring. Requiring 4L nasal cannula. -Continue DuoNebs every 4 hours, budesonide twice daily, methylprednisolone 60 mg twice daily. Doxycyline daily. - Switch to prednisone 40mg tomorrow. - Pulmonolgy consulted, pending further recommendations. -Supplemental oxygen as needed, goal sats greater than 88% -Given his persistent shortness of breath, will administer Xopenex as needed every 6 hours between scheduled nebulizers. -Continue home regimen for stage COPD including Singulair 10 mg daily, Yupelri 175 mcg inhaled daily, and Roflumilast 500 mcg daily - White count normal at 4.9. Per my review of CT of chest and chest x-ray, no focal consolidation or airspace disease. Does have hyperexpansion and COPD on imaging. - Resp panel negative. - Follow-up morning CBC, BMP. Omeprazole for GERD Full code Regular diet
[2024-08-25] VITALS (11 sets, daily range): BP systolic 115–159; BP diastolic 68–80; PULSE 79–98; RESP 16–18; TEMP 36.3–36.6; O2SAT 94–99; BMI 24.0
[2024-08-25] MEDS: IPRATROPIUM/ALBUTEROL 3 ML NEB IH ×8 (01:55→22:00)
--- NOTE | 2024-08-25 04:25 | PC.NURSE ---
49 yo male pt remains A/O X 4. 02 at 2 liters, he does have CPAP available to use prn. He reports beginning to feel some better but still becomes very SOA while ambulating to BR. He refuses to use urinal despite education on energy conservation. Pt has rested better tonight . He remains with insp and exp wheezing but only audible with stethoscope. VVS for pt
[2024-08-25] MEDS: BUDESONIDE 0.5MG/2ML NEB 0.5 MG IH ×2 (06:04→18:09)
[2024-08-25] MEDS: DOXYCYCLINE HYCLATE 100 MG in 0.9 % SODIUM CHLORIDE 250 ML 166.667 MG IV ×2 (08:26→19:54)
[2024-08-25] MEDS: FOLIC ACID 1MG TABLET 1 MG PO (08:27)
[2024-08-25] MEDS: ROFLUMILAST 500 MCG PO (08:27)
[2024-08-25] MEDS: predniSONE 20MG TAB 40 MG PO (08:27)
[2024-08-25 08:50] LABS: Basophils % 0.2 % (0.1-2.0); Eosinophils % 0.2 % (0.1-12.0); Hematocrit 44.2 % (42.0-52.0); Hemoglobin 13.9 g/dL (14.1-18.0); Lymphocytes % 17.9 % (10-50); Mean Corpuscular HGB Conc 31.4 g/dL (31.8-35.4); Mean Corpuscular Hemoglobin 31.6 pg (27.0-31.2); Mean Corpuscular Volume 100.5 fl (80-94); Mean Platelet Volume 7.5 fl (7.4-10.4); Monocytes # 0.4 K/mm3 (0.1-1.0); Monocytes % 6.2 % (1.7-9.3); Neutrophils # 4.3 K/mm3 (1.8-7.8); Neutrophils % 75.5 % (37.0-80.0); Platelet Count 285 K/mm3 (142-424); Red Cell Distribution Width 14.4 % (11.5-17.5); White Blood Count 5.7 K/mm3 (4.8-10.8)
[2024-08-25 08:56] LABS: Chloride 104 mmol/L (98-107)
[2024-08-25 08:57] LABS: Potassium 4.2 mmoL/L (3.5-5.1); Sodium 141 mmol/L (136-145)
[2024-08-25 09:00] LABS: Anion Gap 7.2 mEq/L (5-15); Blood Urea Nitrogen 18 mg/dl (9-20); Calcium 9.6 mg/dl (8.4-10.2); Carbon Dioxide 34 mmol/L (22.0-30.0); Creatinine Clearance Estimated 126 mL/min (50-200); Estimated Glomerular Filt Rate 121 ml/min (>60); GFR (African American) 146 ML/MIN (>60); Glucose 120 mg/dl (74-100)
--- NOTE | 2024-08-25 09:41 | P.CONS_ITS ---
History of Present Illness History of present illness: Mr. Varghese is a 49-year-old male current smoker greater than [id number] smoking history cancer diagnosis of asthma COPD overlap syndrome with baseline ambulation therapies on albuterol on as-needed basis presented to the ER with worsening respiratory distress and pulmonary was called for further evaluation and management. Also had a diagnosis sleep apnea using CPAP at night without any oxygen supplementation. Denies any known sick contacts. Patient admits worsening respiratory distress every year around this time of the year. [facility] Disclaimer: The information contained in this section may have been updated after the patient was seen, as this information can be updated by other users. Medical History (Updated 08/25/24 @ 10:35 by Angélica Abbasi MD) Asthma with severe exacerbation Pneumonia Sleep apnea Ulcerative colitis COPD (chronic obstructive pulmonary disease) Social History Smoking Status: Current some day smoker alcohol intake: never current occupational status: other Travel in the last 8 weeks: None Review of Systems Constitutional Constitutional: Reports anorexia, Reports body ache(s) and Reports fatigue Eyes Eyes: Denies eye discharge, Denies dry eyes, Denies irritation and Denies itchy eyes ENT Ears, Nose, Mouth, and Throat: Denies epistaxis, Denies facial pain, Denies lip swelling and Denies throat swelling *Cardiovascular Cardiovascular: Reports dyspnea and Reports dyspnea on exertion *Respiratory Respiratory: Denies change in phlegm color, Reports chest congestion, Reports cough, Reports dyspnea, Reports dyspnea on exertion, Denies excessive phlegm production, Denies hemoptysis, Denies pain on inspiration, Denies pain with cough and Reports wheezing *Gastrointestinal Gastrointestinal: Denies abdominal pain, Denies belching and Denies cramping *Musculoskeletal Musculoskeletal: Reports back pain, Reports myalgias and Reports other (No small joint swelling or Pain) Psychiatric Psychiatric: Denies homicidal ideation and Denies suicidal ideation Endocrine Endocrine: Reports fatigue and Denies heat intolerance Hematologic/Lymphatic Hematologic/Lymphatic: Denies easy bleeding and Denies lymphadenopathy Allergic/Immunologic Allergic/Immunologic: Denies itchy eyes, Denies lip swelling, Denies throat swelling and Reports wheezing Pulmonology Exam Inpatient Vital signs and Labs for Last 24 Hours: Temp Pulse Resp BP Pulse Ox O2 Del Method O2 Flow Rate 97.4 F L 79 16 115/68 98 Nasal Cannula 2 08/25/24 07:54 08/25/24 09:22 08/25/24 07:54 08/25/24 07:54 08/25/24 07:54 08/25/24 09:00 08/25/24 09:00 Laboratory Results - last 24 hr 08/24/24 16:09: VBG pH 7.35, VBG pCO2 52.4 H, VBG pO2 46.8 H, VBG HCO3 28.0, VBG Total CO2 29.6 H, VBG O2 Saturation 82.1 H, VBG Base Excess 2.3, VBG Lactic Acid 1.6 08/24/24 16:35: Chlamy pneumoniae PCR Not detected, Adenovirus (PCR) Not detected, B. pertussis DNA (PCR) Not detected, Coronavirus OC43 (PCR) Not detected, Coronavirus HKU1 (PCR) Not detected, Coronavirus 229E (PCR) Not detected, SARS-CoV-2 (PCR) Not detected, Coronavirus NL63 (PCR) Not detected, Human Metapneumovir PCR Not detected, Influenza A (H1) PCR Not detected, Influ A (H1N1/09) PCR Not detected, Influenza A (H3) PCR Not detected, Influenza Type A (PCR) Not detected, Influenza Type B (PCR) Not detected, M. pneumoniae (PCR) Not detected, Parainfluenza 1 (PCR) Not detected, Parainfluenza 2 (PCR) Not detected, Parainfluenza 3 (PCR) Not detected, Parainfluenza 4 (PCR) Not detected, RSV (PCR) Not detected, Entero/Rhino (PCR) Not detected 08/25/24 08:36: WBC 5.7, RBC 4.40 L, Hgb 13.9 L, Hct 44.2, MCV 100.5 H, MCH 31.6 H, MCHC 31.4 L, RDW 14.4, Plt Count 285, MPV 7.5, Neut % (Auto) 75.5, Lymph % (Auto) 17.9, [place] % (Auto) 6.2, Eos % (Auto) 0.2, Baso % (Auto) 0.2, Neut # (Auto) 4.3, Lymph # (Auto) 1.0, [place] # (Auto) 0.4, Eos # (Auto) 0.0, Baso # (Auto) 0.0, Sodium 141, Potassium 4.2, Chloride 104, Carbon Dioxide 34 H, Anion Gap 7.2, BUN 18 D, Creatinine 0.70, Estimated Creat Clear 126, Estimated GFR 121, Est GFR ( Amer) 146, Glucose 120 H, Calcium 9.6 I & O for Labs for Last 24 Hours: Intake & Output 08/22/24 08/23/24 08/24/24 08/25/24 23:59 23:59 23:59 23:59 Intake Total 890 / 890 2280 / 2280 540 / 540 Output Total 0 / 0 0 / 0 0 / 0 Balance 890 / 890 2280 / 2280 540 / 540 Weight 150 lb 150 lb 4.8 oz 150 lb Microbiology Reports for the Last 24 Hours: Microbiology 08/24/24 16:57 Sputum - Expectorated Sputum Gram Stain - Final 08/24/24 16:57 Sputum - Expectorated Sputum Sputum Culture - Preliminary Constitutional: Present moderate distress Head: Present normocephalic and atraumatic ENT: Present normal exam, normal oropharynx and mucous membranes moist Neck: Present normal inspection and full ROM Respiratory: Present prolonged expiratory phase, respiratory distress, wheezes, crackles, diminished air movement and able to speak in complete sentences Cardiac: Present S1/S2, Tachycardia and radial pulses present GI: Present soft and distention; Absent tenderness or guarding Skin: Present intact; Absent cyanosis or jaundice Neuro: Present alert, awake and oriented x 3 Extremities: Present normal inspection; Absent clubbing or cyanosis Psychiatric: Present normal affect and cooperative Meds Home Medications and Allergies Home Medications ?Medication ?Instructions ?Recorded ?Confirmed ?Type budesonide 0.5 mg/2 mL suspension 0.5 mg inhalation QIDP PRN lung 08/23/24 08/23/24 History for nebulization inflammation cyanocobalamin (vitamin B-12) 1,000 mcg IM WEEKLY Supplement 08/23/24 08/23/24 History 1,000 mcg/mL injection solution folic acid 1 mg tablet 1 mg PO DAILY 08/23/24 08/23/24 History formoterol fumarate 20 mcg/2 mL 20 mcg inhalation QIDP PRN lung 08/23/24 08/23/24 History solution for nebulization inflammation guaifenesin 600 mg tablet, 600 mg PO BID 08/23/24 08/23/24 History extended release 12 hr (Mucinex) montelukast 10 mg tablet 10 mg PO DAILY 08/23/24 08/23/24 History (Singulair) omeprazole 20 mg capsule,delayed 20 mg PO DAILY 08/23/24 08/23/24 History release revefenacin 175 mcg/3 mL solution 175 mcg inhalation DAILY 08/23/24 08/23/24 History for nebulization (Yupelri) roflumilast 500 mcg tablet 500 mcg PO DAILY 08/23/24 08/23/24 History vedolizumab 300 mg intravenous 300 mg IV MONTHLY 08/23/24 08/23/24 History solution (Entyvio) New Prescriptions to Start Prescriptions: Allergies Allergy/AdvReac Type Severity Reaction Status Date / Time coconut Allergy Anaphylaxis Verified 08/23/24 10:04 mesalamine AdvReac Irritable Verified 08/23/24 10:03 Results Laboratory Findings 08/25/24 08:36 08/25/24 08:36 Abnormal lab findings: Abnormal Labs 08/23/24 08/23/24 08/24/24 05:57 06:12 06:05 RBC 4.53 L 4.56 L Hgb MCV 97.2 H 99.4 H MCH 31.3 H MCHC 31.5 L MPV 7.2 L Eos % (Auto) 0.0 L VBG pCO2 VBG pO2 102.8 H VBG Total CO2 VBG O2 Saturation 97.3 H Carbon Dioxide Glucose 129 H Globulin 3.6 H 3.3 H 08/24/24 08/25/24 16:09 08:36 RBC 4.40 L Hgb 13.9 L MCV 100.5 H MCH 31.6 H MCHC 31.4 L MPV Eos % (Auto) VBG pCO2 52.4 H VBG pO2 46.8 H VBG Total CO2 29.6 H VBG O2 Saturation 82.1 H Carbon Dioxide 34 H Glucose 120 H Globulin Assessment and Plan *Assessment and plan (1) Pneumonia: Status: Acute Category: Medical Code(s): J18.9 - Pneumonia, unspecified organism (2) Asthma with severe exacerbation: Status: Acute Category: Medical Code(s): J45.901 - Unspecified asthma with (acute) exacerbation (3) Acute hypoxic respiratory failure: Status: Acute Category: Medical Code(s): J96.01 - Acute respiratory failure with hypoxia Plan Mr. Varghese is a 49-year-old male current smoker greater than [id number] smoking history cancer diagnosis of asthma COPD overlap syndrome with baseline ambulation therapies on albuterol on as-needed basis presented to the ER with worsening respiratory distress and pulmonary was called for further evaluation and management. Also had a diagnosis sleep apnea using CPAP at night without any oxygen supplementation. Denies any known sick contacts. Patient admits worsening respiratory distress every year around this time of the year. CTA upon admission no evidence of pulmonary embolism. Faint upper lobe groundglass opacities Lt > Rt. No significant emphysematous changes appreciated. Afebrile. Hemodynamically stable. No evidence of leukocytosis. Complaints of respiratory viral PCR panel negative. Blood gas upon admission did not show any concerning evidence of hypoxic/hypercarbic respiratory failure. On examination patient appeared to be in moderate respiratory distress. Diffuse wheezing noted on auscultation. Concerning for asthma exacerbation. Plan: Continue doxycycline for the concerning noted airspace/complex opacities on the CT scan DuoNebs every 4 hours along with Pulmicort Q12 scheduled Initiate Trelegy 100 inhaler Continue prednisone 40 mg daily for a total of 5 days Continue wean oxygen requirements to room air, this morning weaned to 1 L. # Thank you for involving pulmonary in this patient care. Will continue to follow.
[2024-08-25] MEDS: FLUTICASONE/UMECLIDIN/VILANTER 200/62.5/25MCG INHALER 1 PUFF IH (13:10)
--- NOTE | 2024-08-25 14:45 | P.PN_ITS ---
Subjective *Date: 08/25/24 *Time: 14:48 Interval history: Patient continues to have increased work of breathing, moderate respiratory distress, audible wheezing. Exam Data for Last 24 hours Vital signs and Labs for Last 24 Hours: Temp Pulse Resp BP Pulse Ox O2 Del Method O2 Flow Rate 97.4 F L 80 16 115/68 94 L Nasal Cannula 1 08/25/24 07:54 08/25/24 13:11 08/25/24 07:54 08/25/24 07:54 08/25/24 13:11 08/25/24 13:11 08/25/24 13:11 Laboratory Results - last 24 hr 08/24/24 16:09: VBG pH 7.35, VBG pCO2 52.4 H, VBG pO2 46.8 H, VBG HCO3 28.0, VBG Total CO2 29.6 H, VBG O2 Saturation 82.1 H, VBG Base Excess 2.3, VBG Lactic Acid 1.6 08/24/24 16:35: Chlamy pneumoniae PCR Not detected, Adenovirus (PCR) Not detected, B. pertussis DNA (PCR) Not detected, Coronavirus OC43 (PCR) Not detected, Coronavirus HKU1 (PCR) Not detected, Coronavirus 229E (PCR) Not detected, SARS-CoV-2 (PCR) Not detected, Coronavirus NL63 (PCR) Not detected, Human Metapneumovir PCR Not detected, Influenza A (H1) PCR Not detected, Influ A (H1N1/09) PCR Not detected, Influenza A (H3) PCR Not detected, Influenza Type A (PCR) Not detected, Influenza Type B (PCR) Not detected, M. pneumoniae (PCR) Not detected, Parainfluenza 1 (PCR) Not detected, Parainfluenza 2 (PCR) Not detected, Parainfluenza 3 (PCR) Not detected, Parainfluenza 4 (PCR) Not detected, RSV (PCR) Not detected, Entero/Rhino (PCR) Not detected 08/25/24 08:36: WBC 5.7, RBC 4.40 L, Hgb 13.9 L, Hct 44.2, MCV 100.5 H, MCH 31.6 H, MCHC 31.4 L, RDW 14.4, Plt Count 285, MPV 7.5, Neut % (Auto) 75.5, Lymph % (Auto) 17.9, [place] % (Auto) 6.2, Eos % (Auto) 0.2, Baso % (Auto) 0.2, Neut # (Auto) 4.3, Lymph # (Auto) 1.0, [place] # (Auto) 0.4, Eos # (Auto) 0.0, Baso # (Auto) 0.0, Sodium 141, Potassium 4.2, Chloride 104, Carbon Dioxide 34 H, Anion Gap 7.2, BUN 18 D, Creatinine 0.70, Estimated Creat Clear 126, Estimated GFR 121, Est GFR ( Amer) 146, Glucose 120 H, Calcium 9.6 I & O for Last 24 hours: Intake & Output 08/22/24 08/23/24 08/24/24 08/25/24 23:59 23:59 23:59 23:59 Intake Total 890 / 890 2280 / 2280 900 / 900 Output Total 0 / 0 0 / 0 0 / 0 Balance 890 / 890 2280 / 2280 900 / 900 Weight 68.039 kg 68.175 kg 68 kg Microbiology Reports for the Last 24 Hours: Microbiology 08/24/24 16:57 Sputum - Expectorated Sputum Gram Stain - Final 08/24/24 16:57 Sputum - Expectorated Sputum Sputum Culture - Preliminary Constitutional Constitutional: mild distress *Routine HEENT Exam Head: Present normocephalic Eye: Present EOMI and PERRL ENT: Present mucous membranes moist *Routine Neck Exam Neck: Present supple; Absent lymphadenopathy *Routine Respiratory Exam Respiratory: Present wheezes; Absent CTA bilaterally Comments: INcreased work on breathing, wheezing. *Routine Cardiovascular Exam Cardiovascular: Present RRR *Routine Abdominal Exam Abdominal: Present soft and normoactive bowel sounds; Absent tenderness *Routine Extremities Exam Extremities: Absent cyanosis, clubbing or edema *Routine Skin Exam Skin: Present warm; Absent rash *Routine Neurological Exam Neurological: Present alert and oriented X3 Assessment and Plan *Assessment and plan (1) Acute hypoxic respiratory failure: Status: Acute Category: Medical Code(s): J96.01 - Acute respiratory failure with hypoxia (2) Acute exacerbation of chronic obstructive pulmonary disease: Status: Acute Category: Medical Code(s): J44.1 - Chronic obstructive pulmonary disease with (acute) exacerbation (3) Asthma with severe exacerbation: Status: Acute Category: Medical Code(s): J45.901 - Unspecified asthma with (acute) exacerbation Plan 49-year-old male with history of COPD, tobacco use disorder, UC. Presented to the ER with worsening shortness of breath. Discussed case with ER physician, request admission for COPD exacerbation and new oxygen requirement. I agreed to admit for further management. O2 sats in the mid 80s on arrival. Currently on 2 L nasal cannula oxygen. Necessitating nebulizer every 4 hours. Started on IV steroids with methylprednisolone in the ER. Necessitating inpatient management due to his respiratory distress. Problems addressed as follows: Acute hypoxic respiratory failure Acute asthma exacerbation - Patient continues to have moderate respiratory distress, increased work on breathing, audible wheezing. Requiring 4L nasal cannula. ? Consulted pulmonology, case discussed and patient more likely has asthma than COPD exacerbation after reviewing CT chest imaging. This would correlate with his protracted symptoms, as asthma exacerbation can be more severe and more protracted than a COPD exacerbation. ? IV magnesium 2 g given for asthma exacerbation. -Continue DuoNebs every 4 hours and as needed, budesonide twice daily, methylprednisolone 60 mg twice daily. Doxycyline daily. - IV Solu-Medrol 60 mg daily. -Supplemental oxygen as needed, goal sats greater than 90% -Continue home regimen for stage asthma including Singulair 10 mg daily, Yupelri 175 mcg inhaled daily, and Roflumilast 500 mcg daily - White count normal. Per my review of CT of chest and chest x-ray, no focal consolidation or airspace disease. Does have hyperexpansion and COPD on imaging. - Resp panel negative. - Follow-up morning CBC, BMP. #History of ulcerative colitis ? Currently stable. ? Hemoglobin 13.9. Omeprazole for GERD Full code Regular diet
[2024-08-25] MEDS: MAGNESIUM SULFATE IN WATER 2 GM/50 ML PIGGYBACK IV (14:49)
[2024-08-25] MEDS: MONTELUKAST SODIUM 10MG TAB 10 MG PO (19:59)
[2024-08-25] MEDS: PANTOPRAZOLE 40MG TABLET 40 MG PO (19:59)
[2024-08-26] MEDS: IPRATROPIUM/ALBUTEROL 3 ML NEB IH ×2 (02:26→06:10)
[2024-08-26 04:00] VITALS: BP 141/60; PULSE 94; RESP 17; TEMP 36.7; O2SAT 95; BMI 24.3
--- NOTE | 2024-08-26 05:28 | PC.NURSE ---
Patient has remained on 1L NC most of the night, has wore at home CPAP while sleeping. Duoneb's administered q4h per JAN with lots of coughing after each treatment. Wheezing noted upon auscultation. Has independently ambulated to/from restroom well. No complaints expressed this shift. Call light within reach.
[2024-08-26] MEDS: FLUTICASONE/UMECLIDIN/VILANTER 200/62.5/25MCG INHALER 1 PUFF IH (06:10)
[2024-08-26] MEDS: BUDESONIDE 0.5MG/2ML NEB 0.5 MG IH (06:10)
[2024-08-26 06:11] VITALS: PULSE 110; PULSE 92; O2SAT 94
[2024-08-26 08:00] VITALS: BP 134/72; PULSE 96; RESP 18; TEMP 36.1; O2SAT 97
[2024-08-26] MEDS: DOXYCYCLINE HYCLATE 100 MG in 0.9 % SODIUM CHLORIDE 250 ML 166.667 MG IV (08:16)
[2024-08-26] MEDS: ROFLUMILAST 500 MCG PO (08:16)
[2024-08-26] MEDS: FOLIC ACID 1MG TABLET 1 MG PO (08:16)
[2024-08-26] MEDS: METHYLPREDNISOLONE SOD SUCC 125MG VIAL 60 MG IV (08:16)
--- NOTE | 2024-08-26 08:35 | P.PN_ITS ---
Subjective *Date: 08/26/24 *Time: 08:35 Medical Exam Vital signs and Labs for Last 24 Hours: Vital Signs Temp Pulse Pulse Resp BP Pulse Ox O2 Del Method 08/26/24 08:00 Nasal Cannula 08/26/24 08:00 96.9 F L 96 H 18 134/72 97 Nasal Cannula 08/26/24 06:34 Room Air 08/26/24 06:11 110 H 08/26/24 06:11 92 H 08/26/24 06:11 94 L Nasal Cannula 08/26/24 05:00 CPAP 08/26/24 04:00 98.0 F 94 H 17 141/60 H 95 CPAP 08/26/24 03:00 CPAP 08/26/24 01:00 Nasal Cannula 08/25/24 23:00 CPAP 08/25/24 22:00 87 08/25/24 22:00 87 08/25/24 21:00 Nasal Cannula 08/25/24 19:55 Nasal Cannula 08/25/24 19:53 97.7 F 87 18 159/76 H 95 Nasal Cannula 08/25/24 18:51 Nasal Cannula 08/25/24 18:09 84 08/25/24 18:09 86 08/25/24 18:09 95 Nasal Cannula 08/25/24 17:00 Nasal Cannula 08/25/24 16:00 97.5 F L 87 18 140/79 95 Nasal Cannula 08/25/24 15:00 Nasal Cannula 08/25/24 13:11 80 08/25/24 13:11 80 08/25/24 13:11 94 L Nasal Cannula 08/25/24 13:00 Nasal Cannula 08/25/24 11:54 94 H 08/25/24 11:54 98 H 08/25/24 11:54 94 L Nasal Cannula 08/25/24 11:00 Nasal Cannula 08/25/24 09:22 79 08/25/24 09:22 84 08/25/24 09:00 Nasal Cannula O2 Flow Rate 08/26/24 08:00 1 08/26/24 08:00 1 08/26/24 06:34 08/26/24 06:11 08/26/24 06:11 08/26/24 06:11 1 08/26/24 05:00 08/26/24 04:00 08/26/24 03:00 08/26/24 01:00 1 08/25/24 23:00 08/25/24 22:00 08/25/24 22:00 08/25/24 21:00 1 08/25/24 19:55 1 08/25/24 19:53 08/25/24 18:51 2 08/25/24 18:09 08/25/24 18:09 08/25/24 18:09 1 08/25/24 17:00 2 08/25/24 16:00 1 08/25/24 15:00 2 08/25/24 13:11 08/25/24 13:11 08/25/24 13:11 1 08/25/24 13:00 2 08/25/24 11:54 08/25/24 11:54 08/25/24 11:54 1 08/25/24 11:00 2 08/25/24 09:22 08/25/24 09:22 08/25/24 09:00 2 Intake and Output 08/25/24 08/26/24 08/26/24 23:59 07:59 15:59 Intake Total 240 / 1140 250 / 250 Output Total 0 / 0 0 / 0 Balance 240 / 1140 0 / 250 250 / 250 Intake: Intake, Oral Amount 240 / 1140 Intake, Total IV Amount 250 / 250 Doxycycline Hyclate 100 mg In 0 250 / 250 .9 % Sodium Chloride 250 ml @ 166.667 mls/hr IV Q12H [facility] Rx#: [id number] Output: Output, Urine Amount 0 / 0 0 / 0 Other: Number of Unmeasured Voids 2 1 Number of Bowel Movements 2 1 Weight 68.492 kg Patient Weight 08/26/24 23:59 Weight 68.492 kg Laboratory Results - last 24 hr 08/25/24 08:36: WBC 5.7, RBC 4.40 L, Hgb 13.9 L, Hct 44.2, MCV 100.5 H, MCH 31.6 H, MCHC 31.4 L, RDW 14.4, Plt Count 285, MPV 7.5, Neut % (Auto) 75.5, Lymph % (Auto) 17.9, [place] % (Auto) 6.2, Eos % (Auto) 0.2, Baso % (Auto) 0.2, Neut # (Auto) 4.3, Lymph # (Auto) 1.0, [place] # (Auto) 0.4, Eos # (Auto) 0.0, Baso # (Auto) 0.0, Sodium 141, Potassium 4.2, Chloride 104, Carbon Dioxide 34 H, Anion Gap 7.2, BUN 18 D, Creatinine 0.70, Estimated Creat Clear 126, Estimated GFR 121, Est GFR ( Amer) 146, Glucose 120 H, Calcium 9.6 I & O for Labs for Last 24 Hours: Intake & Output 08/23/24 08/24/24 08/25/24 08/26/24 23:59 23:59 23:59 23:59 Intake Total 890 / 890 2280 / 2280 1140 / 1140 250 / 250 Output Total 0 / 0 0 / 0 0 / 0 0 / 0 Balance 890 / 890 2280 / 2280 1140 / 1140 250 / 250 Weight 68.039 kg 68.175 kg 68 kg 68.492 kg Microbiology Reports for the Last 24 Hours: Microbiology 08/24/24 16:57 Sputum - Expectorated Sputum Gram Stain - Final 08/24/24 16:57 Sputum - Expectorated Sputum Sputum Culture - Preliminary The patient's infection will respond to the chosen ABx?: Yes Is the patient receiving the right drug, dose, and route?: Yes Could a more targeted ABx be ordered?: No (WBC WNL, AFEBRILE, NO GROWTH IN SPUTUM)
--- NOTE | 2024-08-26 09:21 | EXP.PULM.PN ---
Subjective *Date: 08/26/24 *Time: 10:04 Interval history: No acute respiratory vents overnight. Patient admits continued improvement in his respiratory symptoms. Pulmonology Exam Inpatient Vital signs and Labs for Last 24 Hours: Temp Pulse Resp BP Pulse Ox O2 Del Method O2 Flow Rate 96.9 F L 96 H 18 134/72 97 Nasal Cannula 1 08/26/24 08:00 08/26/24 08:00 08/26/24 08:00 08/26/24 08:00 08/26/24 08:00 08/26/24 08:00 08/26/24 08:00 Temp Pulse Resp BP Pulse Ox O2 Del Method O2 Flow Rate 97.4 F L 79 16 115/68 98 Nasal Cannula 2 08/25/24 07:54 08/25/24 09:22 08/25/24 07:54 08/25/24 07:54 08/25/24 07:54 08/25/24 09:00 08/25/24 09:00 Laboratory Results - last 24 hr 08/24/24 16:09: VBG pH 7.35, VBG pCO2 52.4 H, VBG pO2 46.8 H, VBG HCO3 28.0, VBG Total CO2 29.6 H, VBG O2 Saturation 82.1 H, VBG Base Excess 2.3, VBG Lactic Acid 1.6 08/24/24 16:35: Chlamy pneumoniae PCR Not detected, Adenovirus (PCR) Not detected, B. pertussis DNA (PCR) Not detected, Coronavirus OC43 (PCR) Not detected, Coronavirus HKU1 (PCR) Not detected, Coronavirus 229E (PCR) Not detected, SARS-CoV-2 (PCR) Not detected, Coronavirus NL63 (PCR) Not detected, Human Metapneumovir PCR Not detected, Influenza A (H1) PCR Not detected, Influ A (H1N1/09) PCR Not detected, Influenza A (H3) PCR Not detected, Influenza Type A (PCR) Not detected, Influenza Type B (PCR) Not detected, M. pneumoniae (PCR) Not detected, Parainfluenza 1 (PCR) Not detected, Parainfluenza 2 (PCR) Not detected, Parainfluenza 3 (PCR) Not detected, Parainfluenza 4 (PCR) Not detected, RSV (PCR) Not detected, Entero/Rhino (PCR) Not detected 08/25/24 08:36: WBC 5.7, RBC 4.40 L, Hgb 13.9 L, Hct 44.2, MCV 100.5 H, MCH 31.6 H, MCHC 31.4 L, RDW 14.4, Plt Count 285, MPV 7.5, Neut % (Auto) 75.5, Lymph % (Auto) 17.9, [place] % (Auto) 6.2, Eos % (Auto) 0.2, Baso % (Auto) 0.2, Neut # (Auto) 4.3, Lymph # (Auto) 1.0, [place] # (Auto) 0.4, Eos # (Auto) 0.0, Baso # (Auto) 0.0, Sodium 141, Potassium 4.2, Chloride 104, Carbon Dioxide 34 H, Anion Gap 7.2, BUN 18 D, Creatinine 0.70, Estimated Creat Clear 126, Estimated GFR 121, Est GFR ( Amer) 146, Glucose 120 H, Calcium 9.6 I & O for Labs for Last 24 Hours: Intake & Output 08/23/24 08/24/24 08/25/24 08/26/24 23:59 23:59 23:59 23:59 Intake Total 890 / 890 2280 / 2280 1140 / 1140 250 / 250 Output Total 0 / 0 0 / 0 0 / 0 0 / 0 Balance 890 / 890 2280 / 2280 1140 / 1140 250 / 250 Weight 150 lb 150 lb 4.8 oz 149 lb 14.629 oz 151 lb Intake & Output 08/22/24 08/23/24 08/24/24 08/25/24 23:59 23:59 23:59 23:59 Intake Total 890 / 890 2280 / 2280 540 / 540 Output Total 0 / 0 0 / 0 0 / 0 Balance 890 / 890 2280 / 2280 540 / 540 Weight 150 lb 150 lb 4.8 oz 150 lb Microbiology Reports for the Last 24 Hours: Microbiology 08/24/24 16:57 Sputum - Expectorated Sputum Gram Stain - Final 08/24/24 16:57 Sputum - Expectorated Sputum Sputum Culture - Preliminary Microbiology 08/24/24 16:57 Sputum - Expectorated Sputum Gram Stain - Final 08/24/24 16:57 Sputum - Expectorated Sputum Sputum Culture - Preliminary Constitutional: Present moderate distress Head: Present normocephalic and atraumatic ENT: Present normal exam, normal oropharynx and mucous membranes moist Neck: Present normal inspection and full ROM Respiratory: Present prolonged expiratory phase and able to speak in complete sentences; Absent respiratory distress, wheezes or diminished air movement Cardiac: Present S1/S2, Tachycardia and radial pulses present GI: Present soft and distention; Absent tenderness or guarding Skin: Present intact; Absent cyanosis or jaundice Neuro: Present alert, awake and oriented x 3 Extremities: Present normal inspection; Absent clubbing or cyanosis Psychiatric: Present normal affect and cooperative Assessment and Plan *Assessment and plan (1) Pneumonia: Status: Acute Category: Medical Code(s): J18.9 - Pneumonia, unspecified organism (2) Asthma with severe exacerbation: Status: Acute Category: Medical Code(s): J45.901 - Unspecified asthma with (acute) exacerbation (3) Acute hypoxic respiratory failure: Status: Acute Category: Medical Code(s): J96.01 - Acute respiratory failure with hypoxia Plan Mr. Varghese is a 49-year-old male current smoker greater than [id number] smoking history cancer diagnosis of asthma COPD overlap syndrome with baseline ambulation therapies on albuterol on as-needed basis presented to the ER with worsening respiratory distress and pulmonary was called for further evaluation and management. Also had a diagnosis sleep apnea using CPAP at night without any oxygen supplementation. Denies any known sick contacts. Patient admits worsening respiratory distress every year around this time of the year. CTA upon admission no evidence of pulmonary embolism. Faint upper lobe groundglass opacities Lt > Rt. No significant emphysematous changes appreciated. Afebrile. Hemodynamically stable. No evidence of leukocytosis. Complaints of respiratory viral PCR panel negative. Blood gas upon admission did not show any concerning evidence of hypoxic/hypercarbic respiratory failure. On initial examination patient appeared to be in moderate respiratory distress. Diffuse wheezing noted on auscultation. Concerning for asthma exacerbation. Interval Update Sputum cultures nonactionable results. Stable oxygen requirements. Afebrile. Hemodynamically stable. Significant improvement in her wheezing and respiratory status. Plan: Continue doxycycline x 5 days for the concerning noted airspace/complex opacities on the CT scan Continue Trelegy 100 inhaler along with DuoNebs every 6 as needed Continue prednisone 40 mg daily for a total of 5 days Oxygen supplementation as needed to maintain O2 saturation of 90% and above. Recommend 6-minute walk testing prior to discharge # Thank you for involving pulmonary in this patient care. Will follow the patient in pulmonary clinic 2 to 3 weeks post discharge
--- NOTE | 2024-08-26 11:55 | P.DS_ITS ---
General Admission date:: 08/23/24 HPI HPI HPI: Mr. Varghese is a 49-year-old male with extensive smoking history. Smokes 1 to 2 packs a day. Has significant history of COPD. Per his report he has stage IV COPD. Denies any home oxygen at this time but has been on oxygen for exacerbations in the past. Presented to the ER with worsening shortness of breath, wheezing. Symptoms worsen over the past 24 to 48 hours. Denies any nausea or vomiting. No chest pain. Has been using his inhalers at home. Continues to smoke. He denies any chest pain, headache, dizziness, nausea, vomiting, diarrhea, or abdominal pain. On arrival to the ER, patient noted to have facial plethora and hypoxia in the mid 80s. Workup concerning for COPD exacerbation with hypoxia and new oxygen requirement. Very poor air movement. Required multiple [id number] nebulizers with no significant improvement in wheezing and air movement. Medicine consulted for admission and further treatment. On arrival to the floor, patient still in mild distress. Significantly wheezy on exam. Using accessory muscles to breathe. Hospital Course Hospital Course Hospital Course: 49-year-old male with history of COPD, tobacco use disorder, UC. Presented to the ER with worsening shortness of breath. Discussed case with ER physician, request admission for COPD exacerbation and new oxygen requirement. I agreed to admit for further management. O2 sats in the mid 80s on arrival. Currently on 2 L nasal cannula oxygen. Necessitating nebulizer every 4 hours. Started on IV steroids with methylprednisolone in the ER. Acute hypoxic respiratory failure Acute asthma exacerbation - Respiratory viral panel negative. CXR showed hyperinflated lungs, CTA did not show acute findings. - Clinically improved gradually with Duonebs and Pulmicort breathing treatments, IV magnesium, steroids, and doxycycline. - Weaned to room air with appropriate saturations. - Discharged with prednisone 40mg and doxyclyline for 1 more day. - Continue home LAMA/LABA/ICS breathing treatments, and Singulair and Roflumilast. - Will follow-up with pulmonology within 1 week. #History of ulcerative colitis ? Currently stable. ? Hemoglobin 13.9. Exam Data for Last 24 hours Vital signs and Labs for Last 24 Hours: Temp Pulse Resp BP Pulse Ox O2 Del Method O2 Flow Rate 96.9 F L 96 H 18 134/72 97 Nasal Cannula 1 08/26/24 08:00 08/26/24 08:00 08/26/24 08:00 08/26/24 08:00 08/26/24 08:00 08/26/24 09:43 08/26/24 09:43 I & O for Last 24 hours: Intake & Output 08/23/24 08/24/24 08/25/24 08/26/24 23:59 23:59 23:59 23:59 Intake Total 890 / 890 2280 / 2280 1140 / 1140 490 / 490 Output Total 0 / 0 0 / 0 0 / 0 0 / 0 Balance 890 / 890 2280 / 2280 1140 / 1140 490 / 490 Weight 68.039 kg 68.175 kg 68 kg 68.492 kg Microbiology Reports for the Last 24 Hours: Microbiology 08/24/24 16:57 Sputum - Expectorated Sputum Gram Stain - Final 08/24/24 16:57 Sputum - Expectorated Sputum Sputum Culture - Final Constitutional Constitutional: no acute distress *Routine HEENT Exam Head: Present normocephalic Eye: Present EOMI and PERRL ENT: Present mucous membranes moist *Routine Neck Exam Neck: Present supple; Absent lymphadenopathy *Routine Respiratory Exam Respiratory: Present CTA bilaterally *Routine Cardiovascular Exam Cardiovascular: Present RRR *Routine Abdominal Exam Abdominal: Present soft and normoactive bowel sounds; Absent tenderness *Routine Extremities Exam Extremities: Absent cyanosis, clubbing or edema *Routine Skin Exam Skin: Present warm; Absent rash *Routine Neurological Exam Neurological: Present alert and oriented X3 DS: Diagnosis Discharge Diagnosis (1) Pneumonia: Status: Acute Code(s): J18.9 - Pneumonia, unspecified organism (2) Asthma with severe exacerbation: Status: Resolved Code(s): J45.901 - Unspecified asthma with (acute) exacerbation (3) Acute hypoxic respiratory failure: Status: Acute Code(s): J96.01 - Acute respiratory failure with hypoxia Meds Home Medications and Allergies Home Medications ?Medication ?Instructions ?Recorded ?Confirmed ?Type budesonide 0.5 mg/2 mL suspension 0.5 mg inhalation QIDP PRN lung 08/23/24 08/23/24 History for nebulization inflammation cyanocobalamin (vitamin B-12) 1,000 mcg IM WEEKLY Supplement 08/23/24 08/23/24 History 1,000 mcg/mL injection solution folic acid 1 mg tablet 1 mg PO DAILY 08/23/24 08/23/24 History formoterol fumarate 20 mcg/2 mL 20 mcg inhalation QIDP PRN lung 08/23/24 08/23/24 History solution for nebulization inflammation guaifenesin 600 mg tablet, 600 mg PO BID 08/23/24 08/23/24 History extended release 12 hr (Mucinex) montelukast 10 mg tablet 10 mg PO DAILY 08/23/24 08/23/24 History (Singulair) omeprazole 20 mg capsule,delayed 20 mg PO DAILY 08/23/24 08/23/24 History release revefenacin 175 mcg/3 mL solution 175 mcg inhalation DAILY 08/23/24 08/23/24 History for nebulization (Yupelri) roflumilast 500 mcg tablet 500 mcg PO DAILY 08/23/24 08/23/24 History vedolizumab 300 mg intravenous 300 mg IV MONTHLY 08/23/24 08/23/24 History solution (Entyvio) doxycycline hyclate 100 mg capsule 100 mg PO BID #3 caps 08/26/24 Rx prednisone 20 mg tablet 40 mg (2 x 20 mg) PO DAILY #1 tab 08/26/24 Rx New Prescriptions to Start Prescriptions: doxycycline hyclate Vu Rdz prednisone Vu Rdz Allergies Allergy/AdvReac Type Severity Reaction Status Date / Time coconut Allergy Anaphylaxis Verified 08/23/24 10:04 mesalamine AdvReac Irritable Verified 08/23/24 10:03 Discharge Plan Disposition Patient Disposition: Home, Self-Care Discharge Order Discharge Orders: Discharge Order (Routine); Ordered 08/26/24 Ordered By: Vu Rdz Follow up Plan Follow up with: Kim Willis APRN [Primary Care Provider] - Enter time for follow up (Nurse will call patient to schedule appointment. ) Angélica Abbasi MD [Physician] - 09/02/24 2:00 pm (Within 1 week) Prescriptions/Medication Reconciliation: New doxycycline hyclate 100 mg capsule 100 mg PO BID Qty: 3 0RF prednisone 20 mg tablet 40 mg PO DAILY Qty: 1 0RF Continued cyanocobalamin (vitamin B-12) 1,000 mcg/mL Solution 1,000 mcg IM WEEKLY omeprazole 20 mg Capsule,Delayed Release(Dr/Ec) 20 mg PO DAILY budesonide 0.5 mg/2 mL suspension for nebulization 0.5 mg inhalation QIDP PRN (Reason: lung inflammation) folic acid 1 mg tablet 1 mg PO DAILY montelukast [Singulair] 10 mg Tablet 10 mg PO DAILY formoterol fumarate 20 mcg/2 mL solution for nebulization 20 mcg INHALATION QIDP PRN (Reason: lung inflammation) roflumilast 500 mcg tablet 500 mcg PO DAILY guaifenesin [Mucinex] 600 mg Tablet Extended Release 12hr 600 mg PO BID Entyvio 300 mg Recon Soln 300 mg IV MONTHLY Yupelri 175 mcg/3 mL solution for nebulization 175 mcg INHALATION DAILY Problem Reconciliation Problems Reviewed?: Yes Patient Discharge Instructions ACTIVITY: Continue current activity DIET: continue same diet Patient Instructions: Smoking Cessation for Older Adults: It's Not Too Late!, DI for Chronic Obstructive Pulmonary Disease, DI for Ulcerative Colitis, Be a Partner in Your COPD Care, Physical Activity for People with COPD Print Language: Palestinian Providers Primary Care Provider: Kim Willis Provider: Sanchez Wallace Attending Provider: Sanchez Wallace
--- NOTE | 2024-08-30 14:51 | CARE MANAGER ---
Attempted to contact patient related to hospital stay x2. No VM option. VINCE Hickman
== END 2024-08-26 13:24 | disposition home or self-care (01) | DRG 189 ==
LOC: ER 08:34 → 2ND 09:09
PROVIDERS: Student in an Organized Health Care Education/Training Program; Admitting Provider Internal Medicine Adolescent Medicine; Emergency Provider Emergency Medicine; PCP Nurse Practitioner Family; Visit Provider Internal Medicine Adolescent Medicine
DX: J96.01 Acute respiratory failure with hypoxia (principal); J45.901 Unspecified asthma with (acute) exacerbation; J44.1 Chronic obstructive pulmonary disease with (acute) exacerbation; J18.9 Pneumonia, unspecified organism; K51.90 Ulcerative colitis, unspecified, without complications; F17.210 Nicotine dependence, cigarettes, uncomplicated; Z79.899 Other long term (current) drug therapy
CPT/HCPCS: 36415; 71045; 71275; 80048; 80053; 82803; 83735; 83880; 84484; 85025; 86803; 87070; 87205; 87265; 87389; 87486; 87581; 87632; 87635; 93005; 94640; 94760; 94761; 99291; J2919; J3475; J7613; J7614; J7620; Q9967

== ENCOUNTER 2024-10-18 11:00 | Outpatient (RCR) | payer BC, SELFPAY | END 2024-10-18 23:59 | disposition home or self-care (01) | LOC: PT 11:00 | PROVIDERS: PCP Nurse Practitioner Family; Visit Provider Internal Medicine Geriatric Medicine | DX: J44.9 Chronic obstructive pulmonary disease, unspecified (principal); J96.90 Respiratory failure, unspecified, unspecified whether with hypoxia or hypercapnia | CPT/HCPCS: 97110; 97163; 97530 ==

== ENCOUNTER 2024-11-05 18:15 | Inpatient (IN) | payer BC, SELFPAY ==
[2024-11-05] VITALS (9 sets, daily range): BP systolic 99–206; BP diastolic 61–100; PULSE 82–132; RESP 16–30; TEMP 36.9–37.2; O2SAT 95–99; BMI 24.2; BMI 23.8
--- NOTE | 2024-11-05 18:15 | ECG_ITS ---
APPROVED REPORT Exam: Resting ECG HR:123 bpm ECG Measurements Heart Rate 123 AXES WY 141 P 62 QRSd 77 QRS 81 QT 278 T 49 QTc 351 Conclusion SINUS TACHYCARDIA SEPTAL MYOCARDIAL INFARCTION , PROBABLY OLD [40+ ms Q WAVE IN V1/V2] Motion artifact. No acute STEMI Electronically signed by : VANESSA ZIMMERMAN, 11/06/2024 00:09:35
--- NOTE | 2024-11-05 18:20 | XR_ITS ---
PROCEDURE INFORMATION: Exam: XR Chest Exam date and time: 11/05/2024 6:18 PM Age: 49 years old Clinical indication: Other: Resp failure TECHNIQUE: Imaging protocol: Radiologic exam of the chest. Views: 1 view. COMPARISON: CT ANGIO CHEST PE PROTOCOL 08/23/2024 6:48 AM FINDINGS: Lungs: The lungs appear clear. No focal areas of consolidation. Pleural spaces: No pleural effusions. Negative for pneumothorax. Heart/Mediastinum: Cardiac silhouette and pulmonary vasculature are within range of normal. Bones/joints: There is no evidence of acute fracture. IMPRESSION: Negative for an acute cardiopulmonary abnormality. Stable chest radiograph.
--- NOTE | 2024-11-05 18:22 | ED_ITS ---
Discharge Plan Disposition Patient Disposition: Admitted Clinical Impressions Clinical Impression: Acute exacerbation of chronic obstructive pulmonary disease, Acute on chronic respiratory failure with hypoxia and hypercapnia Discharge ED Provider: Jhoana Roldan General Adult HPI General Chief complaint: Shortness of Breath/Dyspnea Stated complaint: SOB Time Seen by Provider: 11/05/24 18:17 History of Present Illness HPI narrative: This patient is a 49-year-old male with a history of tobacco use disorder, COPD not on home oxygen, and prior admission for respiratory failure on ventilator presenting with concern for 2 days of cough and shortness of breath. Patient states that family numbers have COVID so he tested himself at home and tested positive. Today, he could not catch his breath and tried doing multiple breathing treatments at home with no improvement. He arrives by EMS on a nonrebreather. He arrives in acute distress. Related Data Home Medications ?Medication ?Instructions ?Recorded ?Confirmed budesonide 0.5 mg/2 mL suspension 0.5 mg inhalation QIDP PRN lung 08/23/24 11/05/24 for nebulization inflammation cyanocobalamin (vitamin B-12) 1,000 mcg IM WEEKLY Supplement 08/23/24 11/05/24 1,000 mcg/mL injection solution folic acid 1 mg tablet 1 mg PO DAILY 08/23/24 11/05/24 formoterol fumarate 20 mcg/2 mL 20 mcg inhalation QIDP PRN lung 08/23/24 11/05/24 solution for nebulization inflammation guaifenesin 600 mg tablet, 600 mg PO BID 08/23/24 11/05/24 extended release 12 hr (Mucinex) montelukast 10 mg tablet 10 mg PO DAILY 08/23/24 11/05/24 (Singulair) revefenacin 175 mcg/3 mL solution 175 mcg inhalation DAILY 08/23/24 11/05/24 for nebulization (Yupelri) roflumilast 500 mcg tablet 500 mcg PO DAILY 08/23/24 11/05/24 vedolizumab 300 mg intravenous 300 mg IV MONTHLY 08/23/24 11/05/24 solution (Entyvio) carvedilol 6.25 mg tablet 6.25 mg PO DAILY 11/05/24 11/05/24 pantoprazole 40 mg tablet,delayed 40 mg PO DAILY 12/27/24 12/27/24 release Allergies Allergy/AdvReac Type Severity Reaction Status Date / Time coconut Allergy Anaphylaxis Verified 08/23/24 10:04 mesalamine AdvReac Irritable Verified 08/23/24 10:03 [facility] Disclaimer: The information contained in this section may have been updated after the patient was seen, as this information can be updated by other users. Medical History (Updated 11/05/24 @ 21:34 by Lachelle Zelaya RN) Hypertension Asthma with severe exacerbation Pneumonia Sleep apnea Ulcerative colitis COPD (chronic obstructive pulmonary disease) Social History (Updated 11/05/24 @ 21:43 by Lachelle Zelaya RN) Smoking Status: Former smoker smoking status stop date: alcohol intake: never current occupational status: other Travel in the last 8 weeks: None Have you lived/traveled outside [place] in past 30 days?: No Contact w/someone who lives/traveled outside [place] past 30 days?: No Exposure to someone with infectious disease in past 14 days?: Yes Do you have a fever (greater than 100.4 F or 38 C)?: No Have you tested positive for COVID-19: No Exposed to someone with COVID-19 in past 14 days?: No Do you have a sore throat?: No Do you have a cough?: No Do you have any weakness?: No Do you have any diarrhea?: No Are you experiencing any unusual bleeding?: No Do you have any muscle aches/pain?: No Do you have any abdominal pain?: No Are you experiencing loss of taste or smell?: No Other Medical History Have you received the Flu Vaccine for this season: No Have you received the Pneumonia Vaccine: No ROS Obtained: Yes All systems reviewed & no additional complaints except as documented Physical Exam General General appearance: alert and in distress Head Head exam: atraumatic and normocephalic Eye Eye exam: Present normal appearance, PERRL and EOMI ENT ENT exam: Present normal exam, normal oropharynx, mucous membranes moist and normal external ear exam Neck Neck exam: Present normal inspection, full ROM and trachea midline; Absent tenderness Chest Chest inspection: Present normal inspection and symmetric chest wall rise; Absent tenderness Respiratory Respiratory exam: Present respiratory distress, accessory muscle use, prolonged expiratory phase and other (Severely diminished breath sounds bilaterally, significant respiratory distress) Cardiovascular Cardiovascular exam: Present normal rhythm and tachycardia Abdominal Exam Abdominal exam: Present soft; Absent distention, tenderness or guarding Extremities Exam Extremities exam: Present normal inspection, full ROM and normal capillary refill; Absent tenderness or edema Back Exam Back exam: Present normal inspection and full ROM; Absent tenderness Neurological Exam Neurological exam: Present alert, oriented X3, CN II-XII intact and normal gait; Absent motor sensory deficit Psychiatric Psychiatric exam: Present anxious Skin Skin exam: Present warm and dry Medical Decision Making Medical Records Medical records reviewed: Yes I reviewed the patient's medical records. Screening: Per USPSTF and CDC recommendations, given the prevalence of disease in our region, it is our hospital?s policy to screen for HIV and viral Hepatitis for all patients aged 18 and over and those with ongoing risk factors. Sunday Inquiry Pt receiving controlled substance: No Vital Signs: 11/05/24 18:15 11/05/24 18:33 11/05/24 20:48 Temperature 98.9 F 98.4 F Temperature Source Oral Oral Pulse Rate 132 H 94 H Pulse Rate [Left Radial] 116 H Respiratory Rate 30 H 16 Blood Pressure 99/79 L 124/81 Blood Pressure [Right Arm] 206/100 H Blood Pressure Mean 80 Blood Pressure Mean [Right Arm] 135 02 Sat by Pulse Oximetry 99 95 Oxygen Delivery Method Non-Rebreather BiPAP Lab Data Lab results reviewed: Yes I reviewed the patient's lab results. Lab Results 11/05/24 18:12: SARS-CoV-2 (PCR) Detected A, Influenza A Untype (PCR) Not detected, Influenza Type B (PCR) Not detected 11/05/24 18:18: WBC 9.5, RBC 4.02 L, Hgb 12.1 L, Hct 38.0 L, MCV 94.5 H, MCH 30.1, MCHC 31.8, RDW 13.5, Plt Count 255, MPV 9.3, Neut % (Auto) 71.9, Lymph % (Auto) 16.1, [place] % (Auto) 10.4 H, Eos % (Auto) 0.8, Baso % (Auto) 0.6, Neut # (Auto) 6.8, Lymph # (Auto) 1.5, [place] # (Auto) 1.0, Eos # (Auto) 0.1, Baso # (Auto) 0.1, D-Dimer 0.92 H, Sodium 141, Potassium 4.6, Chloride 103, Carbon Dioxide 31 H, Anion Gap 11.6, BUN 9, Creatinine 0.70, Estimated Creat Clear 126, Estimated GFR 121, Est GFR ( Amer) 146, Glucose 120 H, Calcium 9.1, Total Bilirubin 0.4, AST 38, ALT 23, Alkaline Phosphatase 95, Troponin I < 0.01, C- Reactive Protein 94.6 H, NT-Pro-B Natriuret Pep 53.3, Total Protein 7.0, Albumin 4.0, Globulin 3.0, Albumin/Globulin Ratio 1.3 11/05/24 18:26: VBG pH 7.19 L, VBG pCO2 69.2 H, VBG pO2 175.0 H, VBG HCO3 25.7, VBG Total CO2 27.8 H, VBG O2 Saturation 99.1 H, VBG Base Excess -2.5 L, VBG Lactic Acid 1.6 11/05/24 20:00: VBG pH 7.30 L, VBG pCO2 54.9 H, VBG pO2 44.2 H, VBG HCO3 26.3, V BG Total CO2 28.0 H, VBG O2 Saturation 77.6 H, VBG Base Excess -0.1, VBG Lactic Acid 1.2 11/05/24 20:55: Troponin I 0.11 H 11/05/24 18:18 11/05/24 22:55 Orders (Tests/Meds): ED MEDICATIONS Generic Name Dose Route Start Last Admin Trade Name Freq PRN Reason Stop Dose Admin Acetaminophen 650 mg 11/05/24 21:32 Acetaminophen 325mg Tab PO 12/05/24 21:31 Q6HP PRN Mild pain(1-3),fever,headache Albuterol/Ipratropium 3 ml 11/05/24 22:00 11/05/24 22:28 Ipratropium/Albuterol 3 Ml Neb IH 12/05/24 21:59 3 ml Q4RT JOSEPH Administration Ascorbic Acid 500 mg 11/06/24 09:00 Ascorbic Acid 500mg Tab PO 12/06/24 08:59 QID JOSEPH Aspirin 81 mg 11/06/24 09:00 Aspirin 81mg Chewable Tablet PO 12/06/24 08:59 DAILY [facility] Carvedilol 6.25 mg 11/06/24 09:00 Carvedilol 6.25mg Tablet PO 12/06/24 08:59 DAILY [facility] Enoxaparin Sodium 40 mg 11/05/24 22:55 Enoxaparin 40mg/0.4ml Syringe SUBCUT 12/05/24 22:54 DAILY JOSEPH Guaifenesin 600 mg 11/05/24 23:00 Guaifenesin 600 Mg Tab.Er.12h PO 12/05/24 22:59 BID JOSEPH Dextrose/Sodium Chloride 1,000 mls @ 75 mls/hr 11/05/24 20:15 11/05/24 22:34 Dextrose 5%-0.45% Nacl Iv Soln IV 12/05/24 20:14 75 mls/hr .[id number] JOSEPH Administration Lorazepam 1 mg 11/05/24 20:12 Lorazepam 2mg/Ml Vial IV 12/05/24 20:11 Q4HP PRN Agitation Methylprednisolone Sodium Succinate 40 mg 11/05/24 21:00 11/05/24 22:34 Methylprednisolone Sod Succ 40mg Vial IV 12/05/24 20:59 40 mg BID JOSEPH Administration Miscellaneous 1 each 11/05/24 19:15 11/05/24 19:53 Vancomycin Consult Request NOTAPPLIC 12/05/24 19:14 1 each CONSULT PH[facility]Y [facility] Administration Miscellaneous 0 each 11/05/24 21:32 11/05/24 23:46 Remdesivir Pharmacy Consult Request NOTAPPLIC 11/05/24 21:33 1 each CONSULT PHARMACY ONE Administration Non-Formulary Medication 175 mcg 11/06/24 09:00 Revefenacin [Yupelri] 12/06/24 08:59 DAILY [facility] Ondansetron HCl 4 mg 11/05/24 20:12 Ondansetron 4mg/2ml Vial IV 12/05/24 20:11 Q6HP PRN Nausea Roflumilast 500 mcg 11/06/24 09:00 Roflumilast 500mcg Tablet PO 12/06/24 08:59 DAILY [facility] Sodium Chloride 10 ml 11/05/24 21:32 Sodium Chloride 0.9% 10ml Flush Syringe IV 12/05/24 21:31 NEEDED PRN Maintain IV Site Sodium Chloride 3 ml 11/05/24 21:32 Sodium Chloride 3% 15ml Neb IH 12/05/24 21:31 ONCE PRN INDUCE [employer] Zinc Sulfate 220 mg 11/06/24 09:00 Zinc Sulfate 220mg Capsule PO 12/06/24 08:59 DAILY JOSEPH Discontinued Medications Generic Name Dose Route Start Last Admin Trade Name Marlon PRN Reason Stop Dose Admin Albuterol Sulfate 20 mg 11/05/24 18:34 11/05/24 18:58 Albuterol 0.083% 2.5 Mg/3 Ml [facility] 11/05/24 18:35 20 mg ONCE ONE Administration Albuterol/Ipratropium 9 ml 11/05/24 18:20 11/05/24 18:57 Ipratropium/Albuterol 3 Ml [facility] 11/05/24 18:21 9 ml ONCE ONE Administration Albuterol/Ipratropium 3 ml 11/05/24 20:30 11/05/24 20:35 Ipratropium/Albuterol 3 Ml [facility] 12/05/24 20:29 Not Given Q4H JOSEPH Magnesium Sulfate 2 gm in 50 mls @ 50 mls/hr 11/05/24 18:28 11/05/24 18:34 Magnesium Sulfate 2gm/50ml Premix IV 11/05/24 19:27 50 mls/hr ONCE ONE Administration Lactated Ringer's 1,000 mls @ 999 mls/hr 11/05/24 19:15 11/05/24 20:07 Lactated Ringer's 1000 Ml Bag IV 11/05/24 20:15 999 mls/hr .Q1H1M ONE Administration Cefepime HCl 2 gm/ Sodium 100 mls @ 200 mls/hr 11/05/24 19:15 11/05/24 20:07 Chloride IV 11/05/24 19:44 200 mls/hr ONCE ONE Administration Azithromycin 500 mg/ Sodium 250 mls @ 250 mls/hr 11/05/24 19:16 11/05/24 20:07 Chloride IV 11/05/24 19:17 250 mls/hr ONCE ONE Administration Vancomycin/PEG/NADA/Lysine/Water 1.5 gm in 300 mls @ 150 mls/hr 11/05/24 20:00 11/05/24 20:08 Vancomycin 1.5gm/300ml (Peg) Premix IV 11/05/24 21:59 150 mls/hr ONCE ONE Administration Methylprednisolone Sodium Succinate 125 mg 11/05/24 18:28 11/05/24 18:34 Methylprednisolone Sod Succ 125mg Vial IV 11/05/24 18:29 125 mg ONCE ONE Administration ORDERS Category Date Time Status Consult to Case Management [CONS] Routine Cons 11/05/24 20:12 Active Consult to Pulmonology [CONS] Routine Cons 11/05/24 20:12 Active CXR --portable [XR chest portable] Stat Exams 11/05/24 18:20 Completed BNP [NT Pro Brain Natriuretic Pep.] Stat Lab 11/05/24 18:18 Completed CBC w/Auto Diff [Complete Blood Count Auto Diff] Stat Lab 11/05/24 18:18 Completed CMP [Comprehensive Metabolic Panel] Stat Lab 11/05/24 18:18 Completed CRP [C-Reactive Protein] Stat Lab 11/05/24 18:18 Completed Complete Blood Count Auto Diff AMLAB Lab 11/06/24 06:00 Ordered Comprehensive Metabolic Panel AMLAB Lab 11/06/24 06:00 Ordered D-Dimer Stat Lab 11/05/24 18:18 Completed Lactic Acid [facility] Lab 11/06/24 06:00 Ordered Magnesium AMLAB Lab 11/06/24 06:00 Ordered Rapid PCR Covid and Flu A/B Stat Lab 11/05/24 18:12 Completed Trop I [Troponin I] Stat Lab 11/05/24 18:18 Completed Troponin I Q3H Lab 11/05/24 20:55 Completed Troponin I Q3H Lab 11/06/24 00:30 Ordered Blood Culture Stat Micro 11/05/24 19:30 Received VBG [Venous Blood Gas] Stat RT 11/05/24 18:26 Completed VBG [Venous Blood Gas] Timed RT 11/05/24 20:00 Completed Venous Blood Gas AMLAB RT 11/06/24 06:00 Ordered ECG Data Tracing #1: I reviewed this ECG and interpreted as documented below: Sinus tachycardia with a ventricular rate of 123 bpm. No acute STEMI. Some motion artifact grade study. Normal axis ECG initial impression date: 11/05/24 ECG initial impression time: 18:17 Medical Decision Narrative: In summary, this patient is a 49-year-old male presenting to the Emergency Department for evaluation of respiratory distress in the setting of COVID-19 with positive test at home. Differential diagnoses considered include but are not limited to COPD exacerbation, respiratory failure, pneumonia, PE, viral syndrome. Ruling out the most morbid conditions drove assessment. It should be noted patient's history includes COPD which is not at goal therapy. This complicates all aspects of care by increasing patient's risk for morbidity. I reviewed patient's past medical records and noted prior admission here back in August for respiratory failure in the setting of COPD. On exam, the patient is in acute distress with significant increased work of breathing, tachycardia, tachypnea. Heart rate is in the 130s. He has severely diminished breath sounds bilaterally. Immediately, he was given DuoNebs x 3 as well as IV methylprednisolone, magnesium for severe COPD exacerbation. workup included CBC, CMP, CRP, D-dimer, troponin, BNP, VBG, blood cultures, chest x- ray, EKG. EKG sinus tachycardia with no acute STEMI. I independently interpreted chest x-ray prior to the radiologist read and noted no obvious large focal consolidation concerning for pneumonia. Please see their read for final interpretation. Labs were obtained that demonstrated acute respiratory acidosis. Patient is positive for COVID-19. D-dimer is slightly elevated in the setting of COVID-19 but is not above 1. Troponin elevated without STEMI on EKG.. After DuoNebs x 3, patient was given an hour of continuous albuterol for continued respiratory distress. He was placed on BiPAP. On multiple subsequent reassessments while on BiPAP and getting continuous neb, he is doing a whole lot better. He had significant improvement in his work of breathing, vital signs with normal heart rate and O2 saturation on reassessment. I repeated a VBG and respiratory acidosis significantly improved with pH now up to 7.3. Ultimately I feel the patient is stable for admission for acute respiratory failure in the setting of COVID-19 and COPD exacerbation. I had an interactive discussion with the hospitalist who admitted the patient in stable condition. Critical Care Critical Care Time Critical Care Time: Yes Attestation: On 11/05/24, the high probability of a clinically significant, sudden or life threatening deterioration of the following system(s) required my full and direct attention, intervention and personal management. The time I documented below is in addition to time spent performing reported procedures but includes the following listed in this critical care notation. Total Time Total Critical Care Time: 45
--- NOTE | 2024-11-05 18:28 | PC.NURSE ---
RESPIRATORY AT BEDSIDE
[2024-11-05 18:31] LABS: Lactate Venous 1.6 mmol/L (0.4-2.0); VBG Base Excess -2.5 mmol/L (-2.4-2.3); VBG HCO3 25.7 mmol/L (23-30); VBG Oxygen Saturation 99.1 % (50-70); VBG PCO2 69.2 mmol/L (35-51); VBG Total CO2 27.8 mmol/L (23-27)
[2024-11-05 18:31] LABS: Influenza A, PCR Not Detected (NotDetected); Influenza B, PCR Not Detected (NotDetected)
[2024-11-05 18:32] LABS: Basophils # 0.1 K/mm3 (0-0.2); Basophils % 0.6 % (0.1-2.0); Eosinophils # 0.1 K/mm3 (0.0-0.4); Eosinophils % 0.8 % (0.1-12.0); Hemoglobin 12.1 g/dL (14.1-18.0); Lymphocytes # 1.5 K/mm3 (0.7-4.5); Lymphocytes % 16.1 % (10-50); Mean Corpuscular HGB Conc 31.8 g/dL (31.8-35.4); Mean Corpuscular Hemoglobin 30.1 pg (27.0-31.2); Mean Corpuscular Volume 94.5 fl (80-94); Mean Platelet Volume 9.3 fl (7.4-10.4); Monocytes % 10.4 % (1.7-9.3); Neutrophils # 6.8 K/mm3 (1.8-7.8); Neutrophils % 71.9 % (37.0-80.0); Platelet Count 255 K/mm3 (142-424); Red Blood Count 4.02 M/mm3 (4.60-6.20); Red Cell Distribution Width 13.5 % (11.5-17.5); White Blood Count 9.5 K/mm3 (4.8-10.8)
[2024-11-05 18:32] LABS: VBG PH 7.19 mmol/L (7.31-7.41)
[2024-11-05] MEDS: METHYLPREDNISOLONE SOD SUCC 125MG VIAL 125 MG IV (18:34)
[2024-11-05] MEDS: MAGNESIUM SULFATE IN WATER 2 GM/50 ML PIGGYBACK IV (18:34)
[2024-11-05] MEDS: IPRATROPIUM/ALBUTEROL 3 ML NEB 9 ML IH (18:57)
[2024-11-05] MEDS: ALBUTEROL 0.083% 2.5 MG/3 ML NEB 20 MG IH (18:58)
[2024-11-05 18:59] LABS: Coronavirus 19, PCR Detected (NotDetected)
[2024-11-05 19:08] LABS: Alanine Aminotransferase 23 U/L (12-78); Albumin/Globulin Ratio 1.3 (1.1-1.8); Alkaline Phosphatase 95 U/L (38-126); Anion Gap 11.6 mEq/L (5-15); Aspartate Amino Transferase 38 U/L (17-59); Bilirubin,Total 0.4 mg/dl (0.2-1.3); Blood Urea Nitrogen 9 mg/dl (9-20); Calcium 9.1 mg/dl (8.4-10.2); Carbon Dioxide 31 mmol/L (22.0-30.0); Chloride 103 mmol/L (98-107); Creatinine Clearance Estimated 126 mL/min (50-200); Estimated Glomerular Filt Rate 121 ml/min (>60); GFR (African American) 146 ML/MIN (>60); Glucose 120 mg/dl (74-100); Potassium 4.6 mmoL/L (3.5-5.1); Sodium 141 mmol/L (136-145)
[2024-11-05 19:13] LABS: C-Reactive Protein 94.6 mg/L (0-4)
[2024-11-05 19:15] LABS: D-Dimer 0.92 ug/mL (0.0-0.5)
[2024-11-05 19:25] LABS: NT Pro Brain Natriuretic Pep. 53.3 pg/mL (0-125); Troponin I < 0.01 ng/ml (0.00-0.034)
[2024-11-05] MEDS: VANCOMYCIN CONSULT REQUEST 1 EACH NOTAPPLIC (19:53)
[2024-11-05] MEDS: CEFEPIME HCL 2 GM in 0.9 % SODIUM CHLORIDE 100 ML IV (20:07)
[2024-11-05] MEDS: AZITHROMYCIN 500 MG in 0.9 % SODIUM CHLORIDE 250 ML 250 MG IV (20:07)
[2024-11-05] MEDS: LACTATED RINGERS 1000ML 1,000 ML 999 ML IV (20:07)
[2024-11-05] MEDS: VANCOMYCIN/WATER FOR INJ (PEG) 1.5 GM/300 ML PIGGYBACK IV (20:08)
[2024-11-05 20:32] LABS: Lactate Venous 1.2 mmol/L (0.4-2.0); VBG Base Excess -0.1 mmol/L (-2.4-2.3); VBG HCO3 26.3 mmol/L (23-30); VBG Oxygen Saturation 77.6 % (50-70); VBG PCO2 54.9 mmol/L (35-51); VBG PO2 44.2 mmol/L (28-40)
--- NOTE | 2024-11-05 20:46 | PC.NURSE ---
report called to VINCE Larose
[2024-11-05 21:30] LABS: Troponin I 0.11 ng/ml (0.00-0.034)
[2024-11-05] MEDS: IPRATROPIUM/ALBUTEROL 3 ML NEB IH (22:28)
[2024-11-05] MEDS: METHYLPREDNISOLONE SOD SUCC 40MG VIAL 40 MG IV (22:34)
[2024-11-05] MEDS: Dex 5% in 0.45% NaCl 1,000 ML 75 ML IV (22:34)
[2024-11-05 23:08] LABS: Albumin Level 3.6 g/dl (3.5-5.0); Chloride 106 mmol/L (98-107)
[2024-11-05 23:09] LABS: Potassium 4.5 mmoL/L (3.5-5.1); Sodium 137 mmol/L (136-145)
[2024-11-05 23:11] LABS: Alanine Aminotransferase 26 U/L (12-78); Aspartate Amino Transferase 36 U/L (17-59); Blood Urea Nitrogen 10 mg/dl (9-20); Creatinine Clearance Estimated 124 mL/min (50-200); Estimated Glomerular Filt Rate 121 ml/min (>60); GFR (African American) 146 ML/MIN (>60)
[2024-11-05 23:12] LABS: Albumin/Globulin Ratio 1.2 (1.1-1.8); Alkaline Phosphatase 101 U/L (38-126); Anion Gap 7.5 mEq/L (5-15); Bilirubin,Total 0.2 mg/dl (0.2-1.3); Calcium 9.1 mg/dl (8.4-10.2); Carbon Dioxide 28 mmol/L (22.0-30.0); Glucose 156 mg/dl (74-100); Total Protein,Serum 6.6 g/dl (6.3-8.2)
[2024-11-06] VITALS (24 sets, daily range): BP systolic 113–155; BP diastolic 65–89; PULSE 61–88; RESP 15–26; TEMP 36.6–37.1; O2SAT 93–99; BMI 23.8
--- NOTE | 2024-11-06 00:28 | ECG_ITS ---
APPROVED REPORT Exam: Resting ECG HR:80 bpm ECG Measurements Heart Rate 80 AXES NE 122 P 67 QRSd 91 QRS 81 QT 364 T 65 QTc 401 Conclusion SINUS RHYTHM NORMAL ECG UNCONFIRMED REPORT Electronically signed by : Jack Becker MD 11/06/2024 13:42:56
[2024-11-06 01:26] LABS: Troponin I 0.15 ng/ml (0.00-0.034)
[2024-11-06] MEDS: REMDESIVIR 200 MG in 0.9 % SODIUM CHLORIDE 250 ML 250 MG IV (01:32)
[2024-11-06] MEDS: ENOXAPARIN 40MG/0.4ML SYRINGE 40 MG SUBCUT ×2 (01:33→09:28)
[2024-11-06] MEDS: guaiFENesin 600 MG TAB.ER.12H PO ×3 (01:33→21:56)
[2024-11-06] MEDS: IPRATROPIUM/ALBUTEROL 3 ML NEB IH ×6 (02:14→23:00)
--- NOTE | 2024-11-06 04:46 | P.HP_ITS ---
History of Present Illness *Admission Date: 11/05/24 *Reason for visit:: Patient has COPD , COVID-positive now having respiratory distress *History of present illness: The patient a 49-year-old male with a history of 1 or 2 packs a day smoking for 30 years. Had developed COPD., This last August patient became hypoxic needed to come to the emergency room was admitted and requiring oxygen., Per the patient's he had been diagnosed with COPD in his 30s. 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 Patient had several visitors family gatherings during this holiday season I has been exposed to COVID also stated she was COVID positive. Patient came to the ER after 2 days of coughing and shortness of breath had to come in by EMS on a nonrebreather for he was in acute distress.. Steroids with nebulizers patient has improved [facility] Disclaimer: The information contained in this section may have been updated after the pat ient was seen, as this information can be updated by other users. Medical History (Updated 11/06/24 @ 05:07 by Justin Schafer APRN) Tobacco use disorder Hypertension Asthma with severe exacerbation Pneumonia Sleep apnea Ulcerative colitis COPD (chronic obstructive pulmonary disease) Social History Smoking Status: Former smoker smoking status stop date: alcohol intake: never current occupational status: other Travel in the last 8 weeks: None Have you lived/traveled outside [place] in past 30 days?: No Contact w/someone who lives/traveled outside US past 30 days?: No Exposure to someone with infectious disease in past 14 days?: Yes Do you have a fever (greater than 100.4 F or 38 C)?: No Have you tested positive for COVID-19: No Exposed to someone with COVID-19 in past 14 days?: No Do you have a sore throat?: No Do you have a cough?: No Do you have any weakness?: No Do you have any diarrhea?: No Are you experiencing any unusual bleeding?: No Do you have any muscle aches/pain?: No Do you have any abdominal pain?: No Are you experiencing loss of taste or smell?: No Other Medical History Have you received the Flu Vaccine for this season: Yes Have you received the Pneumonia Vaccine: Yes Review of Systems Review of Systems Review of systems:: pertinent systems reviewed and negative unless documented below Constitutional Constitutional: Reports as per HPI Comments: Patient looks very good as far as his nutritional and weight status, does not look like a person with significant COPD Eyes Eyes: Reports as per HPI ENT Ears, Nose, Mouth, and Throat: Reports as per HPI *Cardiovascular Cardiovascular: Reports as per HPI, Reports dyspnea and Reports dyspnea on exertion *Respiratory Respiratory: Reports chest congestion, Reports cough, Reports dyspnea, Reports dyspnea on exertion and Reports wheezing *Gastrointestinal Gastrointestinal: Reports as per HPI *Genitourinary Genitourinary: Reports as per HPI *Musculoskeletal Musculoskeletal: Reports as per HPI Integumentary/Breasts Skin/Breast: Reports as per HPI *Neurologic Neurologic: Reports as per HPI Psychiatric Psychiatric: Reports as per HPI Endocrine Endocrine: Reports as per HPI Allergic/Immunologic Allergic/Immunologic: Reports as per HPI and Reports wheezing Meds Home Medications and Allergies Home Medications ?Medication ?Instructions ?Recorded ?Confirmed ?Type budesonide 0.5 mg/2 mL suspension 0.5 mg inhalation QIDP PRN lung 08/23/24 11/05/24 History for nebulization inflammation cyanocobalamin (vitamin B-12) 1,000 mcg IM WEEKLY Supplement 08/23/24 11/05/24 History 1,000 mcg/mL injection solution folic acid 1 mg tablet 1 mg PO DAILY 08/23/24 11/05/24 History formoterol fumarate 20 mcg/2 mL 20 mcg inhalation QIDP PRN lung 08/23/24 11/05/24 History solution for nebulization inflammation guaifenesin 600 mg tablet, 600 mg PO BID 08/23/24 11/05/24 History extended release 12 hr (Mucinex) montelukast 10 mg tablet 10 mg PO DAILY 08/23/24 11/05/24 History (Singulair) revefenacin 175 mcg/3 mL solution 175 mcg inhalation DAILY 08/23/24 11/05/24 History for nebulization (Yupelri) roflumilast 500 mcg tablet 500 mcg PO DAILY 08/23/24 11/05/24 History vedolizumab 300 mg intravenous 300 mg IV MONTHLY 08/23/24 11/05/24 History solution (Entyvio) carvedilol 6.25 mg tablet 6.25 mg PO BID 11/05/24 11/06/24 History pantoprazole 40 mg tablet,delayed 40 mg PO DAILY 11/05/24 11/05/24 History release trazodone 100 mg tablet 100 mg PO HS 11/06/24 11/06/24 History New Prescriptions to Start Prescriptions: Allergies Allergy/AdvReac Type Severity Reaction Status Date / Time coconut Allergy Anaphylaxis Verified 08/23/24 10:04 mesalamine AdvReac Irritable Verified 08/23/24 10:03 Exam Data for Last 24 hours Vital signs and Labs for Last 24 Hours: Temp Pulse Resp BP Pulse Ox O2 Del Method O2 Flow Rate 98.5 F 62 19 133/86 98 BiPAP 3 11/06/24 04:00 11/06/24 04:00 11/06/24 04:00 11/06/24 04:00 11/06/24 04:00 11/06/24 04:00 11/05/24 22:00 FiO2 30 11/06/24 02:14 Laboratory Results - last 24 hr 11/05/24 18:12: SARS-CoV-2 (PCR) Detected A, Influenza A Untype (PCR) Not detected, Influenza Type B (PCR) Not detected 11/05/24 18:18: WBC 9.5, RBC 4.02 L, Hgb 12.1 L, Hct 38.0 L, MCV 94.5 H, MCH 30.1, MCHC 31.8, RDW 13.5, Plt Count 255, MPV 9.3, Neut % (Auto) 71.9, Lymph % (Auto) 16.1, Tripp % (Auto) 10.4 H, Eos % (Auto) 0.8, Baso % (Auto) 0.6, Neut # (Auto) 6.8, Lymph # (Auto) 1.5, Tripp # (Auto) 1.0, Eos # (Auto) 0.1, Baso # (Auto) 0.1, D-Dimer 0.92 H, Sodium 141, Potassium 4.6, Chloride 103, Carbon Dioxide 31 H, Anion Gap 11.6, BUN 9, Creatinine 0.70, Estimated Creat Clear 126, Estimated GFR 121, Est GFR ( Amer) 146, Glucose 120 H, Calcium 9.1, Total Bilirubin 0.4, AST 38, ALT 23, Alkaline Phosphatase 95, Troponin I < 0.01, C- Reactive Protein 94.6 H, NT-Pro-B Natriuret Pep 53.3, Total Protein 7.0, Albumin 4.0, Globulin 3.0, Albumin/Globulin Ratio 1.3 11/05/24 18:26: VBG pH 7.19 L, VBG pCO2 69.2 H, VBG pO2 175.0 H, VBG HCO3 25.7, VBG Total CO2 27.8 H, VBG O2 Saturation 99.1 H, VBG Base Excess -2.5 L, VBG Lactic Acid 1.6 11/05/24 20:00: VBG pH 7.30 L, VBG pCO2 54.9 H, VBG pO2 44.2 H, VBG HCO3 26.3, VBG Total CO2 28.0 H, VBG O2 Saturation 77.6 H, VBG Base Excess -0.1, VBG Lactic Acid 1.2 11/05/24 20:55: Troponin I 0.11 H 11/05/24 22:55: Sodium 137, Potassium 4.5, Chloride 106, Carbon Dioxide 28, Anion Gap 7.5, BUN 10, Creatinine 0.70, Estimated Creat Clear 124, Estimated GFR 121, Est GFR ( Amer) 146, Glucose 156 H D, Calcium 9.1, Total Bilirubin 0.2, AST 36, ALT 26, Alkaline Phosphatase 101, Total Protein 6.6, Albumin 3.6, Globulin 3.0, Albumin/Globulin Ratio 1.2 11/06/24 00:50: Troponin I 0.15 H I & O for Last 24 hours: Intake & Output 11/03/24 11/04/24 11/05/24 11/06/24 05:59 05:59 05:59 05:59 Output Total 750 / 750 Balance -750 / -750 Weight 148 lb 1.528 oz Radiology Reports for the Last 24 Hours: Chest x-ray really no acute findings looks as good as the 1 from 08/23 no signs of fluid accumulation, Constitutional Constitutional: moderate distress Comments: Physically does not look ill *Routine HEENT Exam Head: Present normocephalic and atraumatic Eye: Present EOMI and PERRL ENT: Present mucous membranes moist Comments: No difficulty speaking or swallowing , *Routine Neck Exam Neck: Present supple and full ROM Routine Chest/Breast/Axilla Exam Comments: No tenderness able to take deep breaths without any difficulty, *Routine Respiratory Exam Respiratory: Present accessory muscle use, diminished air movement, normal respiratory effort and able to speak in complete sentences Comments: Patient is much improved after receiving steroids breathing treatments antibiotics, *Routine Cardiovascular Exam Cardiovascular: Present RRR, Normal S1, Normal S2 and tachycardia *Routine Abdominal Exam Abdominal: Present soft and normoactive bowel sounds Comments: No tenderness during physical exam of the abdomen *Routine Rectal Exam Rectal:: deferred *Routine Genitalia Exam Genitalia:: deferred *Routine Extremities Exam Extremities: Present full ROM and normal capillary refill Comments: No cyanosis found Routine Back/Spine/Pelvis Exam Back/Spine: Present full ROM Comments: No back pain or joint injury found patient able to sit up move bend twist without any difficulty *Routine Skin Exam Skin: Present intact, warm and normal turgor *Routine Neurological Exam Neurological: Present alert, oriented X3 and CN II-XII intact Routine Psychiatric Exam Psychiatric: Present normal affect, normal thought process, cooperative, good insight and good judgment H&P: Result Impressions 1. History of COPD now with positive COVID requiring extra oxygen, second episode of hospitalization since August. Required multiple nebulizations and BiPAP to stabilize 2. 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 Assessment and Plan *Assessment and plan (1) Acute on chronic respiratory failure with hypoxia and hypercapnia: Status: Acute Category: Medical Code(s): J96.21 - Acute and chronic respiratory failure with hypoxia; J96.22 - Acute and chronic respiratory failure with hypercapnia (2) Acute exacerbation of chronic obstructive pulmonary disease: Status: Acute Category: Medical Code(s): J44.1 - Chronic obstructive pulmonary disease with (acute) exacerbation (3) COVID: Status: Acute Category: Medical Code(s): U07.1 - COVID-19 (4) Tachycardia: Status: Acute Category: Medical Code(s): R00.0 - Tachycardia, unspecified Plan 9-year-old male who presented with respiratory failure. Found to be hypoxic from COVID-pneumonia. Case discussed with ER physician, request admission. Medicine agreed to admit. Necessitating BiPAP for hypercapnic respiratory failure. At risk for decompensation. Problems addressed as follows: 1. For COVID with exacerbation of COPD increased oxygen needs. Will use BiPAP as needed. Decreasing down to nasal cannula. Patient with continuous nebs in the ER steroids is doing much better at this present time. 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 Hypoxia, slowly correcting at this point in time patient able to rest on nasal cannula able to drink and talk without difficulty after being on the floor for a short period of time still requiring oxygen pulmonary consult added CBC, CMP, magnesium and VBG ordered for the morning Initiate remdesivir 200 mg IV followed by 100 mg IV daily. Monitor kidney function and liver function daily given risk for toxicity. Rounded on patient after nurse practitioner. Personally examined and interviewed patient. Agree with exam findings and care plan as documented.
[2024-11-06 08:00] LABS: Basophils % 0.2 % (0.1-2.0); Hematocrit 35.4 % (42.0-52.0); Hemoglobin 11.4 g/dL (14.1-18.0); Lymphocytes # 0.5 K/mm3 (0.7-4.5); Lymphocytes % 9.7 % (10-50); Mean Corpuscular HGB Conc 32.2 g/dL (31.8-35.4); Mean Corpuscular Hemoglobin 30.1 pg (27.0-31.2); Mean Corpuscular Volume 93.4 fl (80-94); Mean Platelet Volume 9.2 fl (7.4-10.4); Monocytes # 0.1 K/mm3 (0.1-1.0); Monocytes % 1.4 % (1.7-9.3); Neutrophils # 4.4 K/mm3 (1.8-7.8); Neutrophils % 88.3 % (37.0-80.0); Platelet Count 221 K/mm3 (142-424); Red Blood Count 3.79 M/mm3 (4.60-6.20); Red Cell Distribution Width 13.4 % (11.5-17.5)
[2024-11-06 08:01] LABS: MANUAL DIFFERENTIAL MANUAL DIFFERENTIAL (MANUAL DIFF)
[2024-11-06 08:04] LABS: Lactate Venous 1.7 mmol/L (0.4-2.0); VBG Base Excess -0.3 mmol/L (-2.4-2.3); VBG HCO3 25.5 mmol/L (23-30); VBG Oxygen Saturation 95.1 % (50-70); VBG PCO2 48.5 mmol/L (35-51); VBG PH 7.34 mmol/L (7.31-7.41); VBG PO2 75.6 mmol/L (28-40)
[2024-11-06 08:11] LABS: INR 0.87 (0.9-1.1); Prothrombin Time 9.9 seconds (10.1-12.5)
[2024-11-06 08:18] LABS: Chloride 105 mmol/L (98-107)
[2024-11-06 08:19] LABS: Albumin Level 3.7 g/dl (3.5-5.0); Potassium 4.3 mmoL/L (3.5-5.1); Sodium 137 mmol/L (136-145)
[2024-11-06 08:21] LABS: Alanine Aminotransferase 23 U/L (12-78); Anion Gap 7.3 mEq/L (5-15); Aspartate Amino Transferase 31 U/L (17-59); Blood Urea Nitrogen 9 mg/dl (9-20); Carbon Dioxide 29 mmol/L (22.0-30.0); Creatinine Clearance Estimated 145 mL/min (50-200); Estimated Glomerular Filt Rate 144 ml/min (>60); GFR (African American) 175 ML/MIN (>60)
[2024-11-06 08:22] LABS: Albumin/Globulin Ratio 1.2 (1.1-1.8); Alkaline Phosphatase 96 U/L (38-126); Bilirubin,Total 0.3 mg/dl (0.2-1.3); Calcium 9.5 mg/dl (8.4-10.2); Glucose 153 mg/dl (74-100); Magnesium 2.2 mg/dl (1.6-2.3); Total Protein,Serum 6.7 g/dl (6.3-8.2)
[2024-11-06 08:25] LABS: Lactic Acid 1.1 mmol/L (0.7-2.1)
[2024-11-06] MEDS: ASPIRIN 81MG CHEWABLE TABLET 81 MG PO (09:27)
[2024-11-06] MEDS: ZINC SULFATE 220MG CAPSULE 220 MG PO (09:28)
[2024-11-06] MEDS: ASCORBIC ACID 500MG TAB 500 MG PO ×4 (09:28→21:56)
[2024-11-06] MEDS: METHYLPREDNISOLONE SOD SUCC 40MG VIAL 40 MG IV ×2 (09:28→22:02)
[2024-11-06] MEDS: CARVEDILOL 6.25MG TABLET 6.25 MG PO ×2 (09:28→21:56)
[2024-11-06] MEDS: ROFLUMILAST 500 MCG PO (09:28)
[2024-11-06 09:54] LABS: Lymphocytes % 12 % (10-50); Monocytes % 1 % (2-9); Neutrophils % 86 % (42-76); Platelet Estimate Normal; RBC Morphology Normal; Total Cells Counted 100
--- NOTE | 2024-11-06 14:01 | P.PN_ITS ---
Subjective *Date: 11/06/24 *Time: 21:36 Interval history: Patient feeling some movement today. Remains afebrile. Weaned to nasal cannula oxygen, tolerating 2 to 3 L this morning on rounds. Tolerating p.o. intake. Denies any chest pain, nausea or vomiting. Will BiPAP overnight with imp rovement in mentation and oxygenation. Medical Exam Vital signs and Labs for Last 24 Hours: Vital Signs Temp Pulse Pulse Resp BP BP Pulse Ox 11/06/24 12:00 74 26 H 131/85 97 11/06/24 11:56 11/06/24 11:05 11/06/24 11:00 75 24 155/89 H 96 11/06/24 10:32 73 11/06/24 10:32 77 11/06/24 10:32 95 11/06/24 10:00 83 20 126/79 98 11/06/24 09:00 11/06/24 09:00 73 20 139/80 98 11/06/24 08:15 11/06/24 08:00 70 11/06/24 08:00 66 18 138/83 98 11/06/24 07:00 64 21 131/81 98 11/06/24 06:41 11/06/24 06:19 79 11/06/24 06:19 64 11/06/24 06:19 98 11/06/24 06:19 11/06/24 06:00 63 22 113/65 97 11/06/24 05:00 11/06/24 05:00 61 20 131/79 97 11/06/24 04:00 70 11/06/24 04:00 62 98 11/06/24 04:00 98.5 F 63 19 133/86 99 11/06/24 03:00 11/06/24 03:00 78 19 129/82 98 11/06/24 02:14 76 11/06/24 02:14 73 11/06/24 02:14 11/06/24 02:00 75 22 120/75 96 11/06/24 01:00 11/06/24 01:00 78 15 117/71 96 11/06/24 00:00 78 11/06/24 00:00 83 99 11/06/24 00:00 98.8 F 80 23 131/78 99 11/05/24 23:55 11/05/24 23:00 82 21 106/61 L 99 11/05/24 23:00 11/05/24 22:29 85 11/05/24 22:29 89 11/05/24 22:29 11/05/24 22:00 96 H 20 135/74 95 11/05/24 21:32 97 H 28 H 96 11/05/24 21:32 95 H 26 H 127/79 97 11/05/24 21:31 98.5 F 99 H 27 H 122/79 99 11/05/24 20:48 98.4 F 94 H 16 124/81 11/05/24 18:44 11/05/24 18:33 132 H 99/79 L 95 11/05/24 18:15 98.9 F 116 H 30 H 206/100 H 99 O2 Del Method O2 Flow Rate FiO2 11/06/24 12:00 Nasal Cannula 2 11/06/24 11:56 Nasal Cannula 2 11/06/24 11:05 Nasal Cannula 2 11/06/24 11:00 Nasal Cannula 2 11/06/24 10:32 11/06/24 10:32 11/06/24 10:32 Nasal Cannula 2 11/06/24 10:00 Nasal Cannula 2 11/06/24 09:00 Nasal Cannula 3 11/06/24 09:00 Nasal Cannula 3 11/06/24 08:15 Nasal Cannula 3 11/06/24 08:00 11/06/24 08:00 BiPAP 11/06/24 07:00 BiPAP 11/06/24 06:41 BiPAP 11/06/24 06:19 11/06/24 06:19 11/06/24 06:19 BiPAP 30 11/06/24 06:19 30 11/06/24 06:00 BiPAP 11/06/24 05:00 BiPAP 11/06/24 05:00 BiPAP 11/06/24 04:00 11/06/24 04:00 BiPAP 11/06/24 04:00 BiPAP 11/06/24 03:00 BiPAP 11/06/24 03:00 BiPAP 11/06/24 02:14 11/06/24 02:14 11/06/24 02:14 30 11/06/24 02:00 BiPAP 11/06/24 01:00 BiPAP 11/06/24 01:00 BiPAP 11/06/24 00:00 11/06/24 00:00 BiPAP 11/06/24 00:00 BiPAP 11/05/24 23:55 BiPAP 35 11/05/24 23:00 BiPAP 11/05/24 23:00 BiPAP 11/05/24 22:29 11/05/24 22:29 11/05/24 22:29 35 11/05/24 22:00 Nasal Cannula 3 11/05/24 21:32 Nasal Cannula 3 11/05/24 21:32 Nasal Cannula 3 11/05/24 21:31 3 11/05/24 20:48 BiPAP 11/05/24 18:44 40 11/05/24 18:33 11/05/24 18:15 Non-Rebreather Intake and Output 11/05/24 11/06/24 11/06/24 23:59 07:59 15:59 Output Total 0 / 450 750 / 1300 550 / 1300 Balance 0 / -450 -750 / -1300 -550 / -1300 Output: Output, Urine Amount 0 / 450 750 / 1300 550 / 1300 Other: Number of Unmeasured Voids 1 Number of Bowel Movements 1 1 Weight 67.177 kg 67.175 kg Patient Weight 11/06/24 23:59 Weight 67.175 kg Laboratory Results - last 24 hr 11/05/24 18:12: SARS-CoV-2 (PCR) Detected A, Influenza A Untype (PCR) Not detected, Influenza Type B (PCR) Not detected 11/05/24 18:18: WBC 9.5, RBC 4.02 L, Hgb 12.1 L, Hct 38.0 L, MCV 94.5 H, MCH 30.1, MCHC 31.8, RDW 13.5, Plt Count 255, MPV 9.3, Neut % (Auto) 71.9, Lymph % (Auto) 16.1, Lincoln % (Auto) 10.4 H, Eos % (Auto) 0.8, Baso % (Auto) 0.6, Neut # (Auto) 6.8, Lymph # (Auto) 1.5, Lincoln # (Auto) 1.0, Eos # (Auto) 0.1, Baso # (Auto) 0.1, D-Dimer 0.92 H, Sodium 141, Potassium 4.6, Chloride 103, Carbon Dioxide 31 H, Anion Gap 11.6, BUN 9, Creatinine 0.70, Estimated Creat Clear 126, Estimated GFR 121, Est GFR ( Amer) 146, Glucose 120 H, Calcium 9.1, Total Bilirubin 0.4, AST 38, ALT 23, Alkaline Phosphatase 95, Troponin I < 0.01, C- Reactive Protein 94.6 H, NT-Pro-B Natriuret Pep 53.3, Total Protein 7.0, Albumin 4.0, Globulin 3.0, Albumin/Globulin Ratio 1.3 11/05/24 18:26: VBG pH 7.19 L, VBG pCO2 69.2 H, VBG pO2 175.0 H, VBG HCO3 25.7, VBG Total CO2 27.8 H, VBG O2 Saturation 99.1 H, VBG Base Excess -2.5 L, VBG Lactic Acid 1.6 11/05/24 20:00: VBG pH 7.30 L, VBG pCO2 54.9 H, VBG pO2 44.2 H, VBG HCO3 26.3, VBG Total CO2 28.0 H, VBG O2 Saturation 77.6 H, VBG Base Excess -0.1, VBG Lactic Acid 1.2 11/05/24 20:55: Troponin I 0.11 H 11/05/24 22:55: Sodium 137, Potassium 4.5, Chloride 106, Carbon Dioxide 28, Anion Gap 7.5, BUN 10, Creatinine 0.70, Estimated Creat Clear 124, Estimated GFR 121, Est GFR ( Amer) 146, Glucose 156 H D, Calcium 9.1, Total Bilirubin 0.2, AST 36, ALT 26, Alkaline Phosphatase 101, Total Protein 6.6, Albumin 3.6, Globulin 3.0, Albumin/Globulin Ratio 1.2 11/06/24 00:50: Troponin I 0.15 H 11/06/24 06:00: VBG pH 7.34, VBG pCO2 48.5, VBG pO2 75.6 H, VBG HCO3 25.5, VBG Total CO2 27.0, VBG O2 Saturation 95.1 H, VBG Base Excess -0.3, VBG Lactic Acid 1.7 11/06/24 07:44: WBC 5.0 D, RBC 3.79 L, Hgb 11.4 L, Hct 35.4 L, MCV 93.4, MCH 30.1, MCHC 32.2, RDW 13.4, Plt Count 221, MPV 9.2, Neut % (Auto) 88.3 H, Lymph % (Auto) 9.7 L, Lincoln % (Auto) 1.4 L, Eos % (Auto) 0.0 L, Baso % (Auto) 0.2, Neut # (Auto) 4.4, Lymph # (Auto) 0.5 L, Lincoln # (Auto) 0.1, Eos # (Auto) 0.0, Baso # (Auto) 0.0, Total Counted 100, Neutrophils % (Manual) 86 H, Band Neutrophils % 1.0, Lymphocytes % (Manual) 12, Monocytes % (Manual) 1 L, Platelet Estimate Normal, RBC Morphology Normal, PT 9.9 L, INR 0.87 L, Sodium 137, Potassium 4.3, Chloride 105, Carbon Dioxide 29, Anion Gap 7.3, BUN 9, Creatinine 0.60 L, Es timated Creat Clear 145, Estimated GFR 144, Est GFR ( Amer) 175, Glucose 153 H, Lactate 1.1, Calcium 9.5, Magnesium 2.2, Total Bilirubin 0.3, AST 31, ALT 23, Alkaline Phosphatase 96, Total Protein 6.7, Albumin 3.7, Globulin 3.0, Albumin/Globulin Ratio 1.2 I & O for Labs for Last 24 Hours: Intake & Output 11/03/24 11/04/24 11/05/24 11/06/24 23:59 23:59 23:59 23:59 Output Total 0 / 450 1300 / 1300 Balance 0 / -450 -1300 / -1300 Weight 67.177 kg 67.175 kg Microbiology Reports for the Last 24 Hours: Microbiology 11/05/24 22:33 Sputum - Expectorated Sputum Gram Stain - Final Constitutional: Present mild distress, average body habitus and cooperative Head: Present atraumatic and normocephalic ENT: Present normal exam Respiratory: Present wheezes and normal respiratory effort; Absent rhonchi or crackles Cardiac: Present Reg Rate and Rhythm GI: Present soft and normal bowel sounds; Absent distention or tenderness Extremities: Present normal inspection and full ROM Skin: Present intact; Absent erythema Neuro: Present Grossly Intact, alert, awake, oriented x 3 and moves all extremities Assessment and Plan *Assessment and plan (1) Acute on chronic respiratory failure with hypoxia and hypercapnia: Status: Acute Category: Medical Code(s): J96.21 - Acute and chronic respiratory failure with hypoxia; J96.22 - Acute and chronic respiratory failure with hypercapnia (2) Acute exacerbation of chronic obstructive pulmonary disease: Status: Acute Category: Medical Code(s): J44.1 - Chronic obstructive pulmonary disease with (acute) exacerbation (3) COVID: Status: Acute Category: Medical Code(s): U07.1 - COVID-19 (4) Tachycardia: Status: Acute Category: Medical Code(s): R00.0 - Tachycardia, unspecified Plan 49-year-old male admitted for acute on chronic respiratory failure secondary to COVID-pneumonia. Showing some improvement. Off BiPAP. Weaned to nasal cannula oxygen. Goal sats greater 90%. Currently on 2 to 3 L. Continues to require inpatient management. De-escalate from stepdown to MedSurg level of care. Problems addressed as follows: COVID-19 pneumonia Acute on chronic hypoxemic respiratory failure COPD -Hypercapnia resolved. Weaned off BiPAP to nasal cannula oxygen -Continue remdesivir daily 100 mg IV -Continue zinc and vitamin supplementation per protocol -Lovenox 40 mg subcu daily for DVT prophylaxis -Continue empiric antibiotics for at least 48 hours including vancomycin and cefepime. Cultures pending - Continue DuoNebs, de-escalate to every 6 hours scheduled -Continue steroids with methylprednisolone 40 mg IV twice daily -Continue Roflumilast 500 mcg daily Trazodone nightly 100 mg to help with sleep per home regimen. White count normal at 5, hemoglobin 11. Kidney function normal with BUN 9, creatinine 0.6. Electrolytes normal with potassium 4.3, magnesium 2.2. VBG this morning normal with pH 7.34. Repeat CBC, CMP, magnesium ordered for the morning. DNR/DNI Lovenox prophylaxis Regular diet
[2024-11-06] MEDS: REMDESIVIR 100 MG in 0.9 % SODIUM CHLORIDE 100 ML IV (21:57)
[2024-11-06] MEDS: TRAZODONE 50MG TABLET 100 MG PO (22:01)
[2024-11-07] VITALS (7 sets, daily range): BP systolic 111–131; BP diastolic 56–69; PULSE 70–108; RESP 16–18; TEMP 36.6–36.9; O2SAT 87–99; BMI 23.8
--- NOTE | 2024-11-07 05:47 | PC.NURSE ---
0540: Pt. is alert and orientated x 4. Pt. stated that he was feeling a little better. Pt. on 2-3 liters [place] oxygen when awake. Pt. on CPAP overnight. VSS, personal items and call salcido in reach.
[2024-11-07] MEDS: REVEFENACIN 175 MCG/3 ML 175 EACH IH (06:10)
[2024-11-07] MEDS: IPRATROPIUM/ALBUTEROL 3 ML NEB IH ×2 (06:10→11:55)
[2024-11-07 07:17] LABS: Basophils % 0.1 % (0.1-2.0); Hematocrit 36.2 % (42.0-52.0); Hemoglobin 11.8 g/dL (14.1-18.0); Lymphocytes # 0.7 K/mm3 (0.7-4.5); Lymphocytes % 10.3 % (10-50); Mean Corpuscular HGB Conc 32.6 g/dL (31.8-35.4); Mean Corpuscular Hemoglobin 30.7 pg (27.0-31.2); Mean Corpuscular Volume 94.3 fl (80-94); Mean Platelet Volume 9.5 fl (7.4-10.4); Monocytes # 0.4 K/mm3 (0.1-1.0); Monocytes % 5.1 % (1.7-9.3); Neutrophils % 84.1 % (37.0-80.0); Platelet Count 267 K/mm3 (142-424); Red Blood Count 3.84 M/mm3 (4.60-6.20); Red Cell Distribution Width 13.9 % (11.5-17.5); White Blood Count 7.1 K/mm3 (4.8-10.8)
[2024-11-07 07:26] LABS: Chloride 105 mmol/L (98-107)
[2024-11-07 07:27] LABS: Albumin Level 3.7 g/dl (3.5-5.0); Potassium 3.8 mmoL/L (3.5-5.1); Sodium 141 mmol/L (136-145)
[2024-11-07 07:29] LABS: Anion Gap 7.8 mEq/L (5-15); Blood Urea Nitrogen 16 mg/dl (9-20); Carbon Dioxide 32 mmol/L (22.0-30.0); Creatinine Clearance Estimated 145 mL/min (50-200); Estimated Glomerular Filt Rate 144 ml/min (>60); GFR (African American) 175 ML/MIN (>60)
[2024-11-07 07:30] LABS: Alanine Aminotransferase 23 U/L (12-78); Albumin/Globulin Ratio 1.3 (1.1-1.8); Alkaline Phosphatase 88 U/L (38-126); Aspartate Amino Transferase 31 U/L (17-59); Bilirubin,Total 0.2 mg/dl (0.2-1.3); Calcium 9.9 mg/dl (8.4-10.2); Globulin 2.9 g/dL (1.3-3.2); Glucose 146 mg/dl (74-100); Magnesium 2.2 mg/dl (1.6-2.3); Total Protein,Serum 6.6 g/dl (6.3-8.2)
[2024-11-07] MEDS: ENOXAPARIN 40MG/0.4ML SYRINGE 40 MG SUBCUT (09:38)
[2024-11-07] MEDS: METHYLPREDNISOLONE SOD SUCC 40MG VIAL 40 MG IV (09:38)
[2024-11-07] MEDS: CARVEDILOL 6.25MG TABLET 6.25 MG PO (09:38)
[2024-11-07] MEDS: ASCORBIC ACID 500MG TAB 500 MG PO ×2 (09:38→12:12)
[2024-11-07] MEDS: ASPIRIN 81MG CHEWABLE TABLET 81 MG PO (09:38)
[2024-11-07] MEDS: guaiFENesin 600 MG TAB.ER.12H PO (09:38)
[2024-11-07] MEDS: ZINC SULFATE 220MG CAPSULE 220 MG PO (09:38)
[2024-11-07] MEDS: ROFLUMILAST 500 MCG PO (09:42)
--- NOTE | 2024-11-07 12:06 | EXP.DC.SUM ---
General Admission date:: 11/05/24 Discharge date: 11/07/24 HPI HPI HPI: The patient a 49-year-old male with a history of 1 or 2 packs a day smoking for 30 years. Had developed COPD., This last August patient became hypoxic needed to come to the emergency room was admitted and requiring oxygen., Per the patient's he had been diagnosed with COPD in his 30s. 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 Patient had several visitors family gatherings during this holiday season I has been exposed to COVID also stated she was COVID positive. Patient came to the ER after 2 days of coughing and shortness of breath had to come in by EMS on a nonrebreather for he was in acute distress.. Steroids with nebulizers patient has improved Hospital Course Hospital Course Hospital Course: 49-year-old male admitted for acute on chronic respiratory failure secondary to COVID-pneumonia. Showing some improvement. Initiated on BiPAP on arrival, weaned over first 24 hours nasal cannula. Maintain saturations in the 90s able to wean to 2 L by morning of discharge. Patient showing significant improvement. Responding to antiviral therapy. Feeling significantly better. Remained afebrile. Tolerating p.o. intake. Given his stability and clinical status and improvement, patient would like to go home to continue to recover from his condition. Agreeable to discharge home with supplemental oxygen to complete Paxlovid course. Problems addressed as follows: COVID-19 pneumonia Acute on chronic hypoxemic respiratory failure COPD -Positive for COVID on admission. Patient initially hypercapnic on admission and presentation. Started on BiPAP therapy. Hypercapnia resolved and able to wean from BiPAP to nasal cannula. Tolerating nasal cannula oxygen with saturations in the 90s. Patient was initiated on remdesivir, zinc, vitamin supplementation per protocol. Showed good improvement. Initiated on empiric antibiotics for 48 hours. Cultures remain negative so antibiotics were discontinued. Recommend continuing DuoNebs every 4-6 hours. Patient has nebulizer at home. Treated with steroids during admission, transition to oral prednisone to complete course for COPD exam patient's for COPD including Roflumilast and Yupelri. Patient's room air saturation on day of discharge 87% at rest. Necessitating 2 L oxygen continuously via nasal cannula. Recommended smoking cessation recommended nicotine patches daily to promote smoking cessation. -Continue aspirin 81 mg daily for antithrombotic benefit in the setting of COVID. Trazodone nightly 100 mg to help with sleep per home regimen. White count normal at 7 by day of discharge, hemoglobin 12. Kidney function electrolytes normal. Total time spent on discharge 32 minutes in counseling, documentation, chart review, and direct care with patient. Exam Data for Last 24 hours Vital signs and Labs for Last 24 Hours: Temp Pulse Resp BP Pulse Ox O2 Del Method O2 Flow Rate 98.1 F 108 H 17 129/69 93 L Nasal Cannula 2 11/07/24 08:00 11/07/24 11:56 11/07/24 08:00 11/07/24 08:00 11/07/24 11:56 11/07/24 12:01 11/07/24 12:01 FiO2 30 11/07/24 02:15 Laboratory Results - last 24 hr 11/07/24 07:00: WBC 7.1 D, RBC 3.84 L, Hgb 11.8 L, Hct 36.2 L, MCV 94.3 H, MCH 30.7, MCHC 32.6, RDW 13.9, Plt Count 267, MPV 9.5, Neut % (Auto) 84.1 H, Lymph % (Auto) 10.3, [place] % (Auto) 5.1, Eos % (Auto) 0.0 L, Baso % (Auto) 0.1, Neut # (Auto) 6.0, Lymph # (Auto) 0.7, [place] # (Auto) 0.4, Eos # (Auto) 0.0, Baso # (Auto) 0.0, Sodium 141, Potassium 3.8, Chloride 105, Carbon Dioxide 32 H, Anion Gap 7.8, BUN 16 D, Creatinine 0.60 L, Estimated Creat Clear 145, Estimated GFR 144, Est GFR ( Amer) 175, Glucose 146 H, Calcium 9.9, Magnesium 2.2, Total Bilirubin 0.2, AST 31, ALT 23, Alkaline Phosphatase 88, Total Protein 6.6, Albumin 3.7, Globulin 2.9, Albumin/Globulin Ratio 1.3 I & O for Last 24 hours: Intake & Output 11/04/24 11/05/24 11/06/24 11/07/24 23:59 23:59 23:59 23:59 Intake Total 360 / 360 480 / 480 Output Total 0 / 450 1300 / 1300 Balance 0 / -450 -940 / -940 480 / 480 Weight 67.177 kg 67.175 kg 67.358 kg Microbiology Reports for the Last 24 Hours: Microbiology 11/05/24 22:33 Sputum - Expectorated Sputum Gram Stain - Final 11/05/24 22:33 Sputum - Expectorated Sputum Sputum Culture - Preliminary 11/05/24 19:30 Blood Blood Culture - Preliminary NO GROWTH AFTER 24 HOURS 11/05/24 19:30 Blood Blood Culture - Preliminary NO GROWTH AFTER 24 HOURS Constitutional Constitutional: no acute distress, average body habitus, chronically ill appearing and cooperative *Routine HEENT Exam Head: Present normocephalic Eye: Present EOMI and PERRL ENT: Present mucous membranes moist *Routine Neck Exam Neck: Present supple; Absent lymphadenopathy *Routine Respiratory Exam Respiratory: Present prolonged expiratory phase, wheezes (Minimal, and expiratory.) and normal respiratory effort; Absent rhonchi or crackles *Routine Cardiovascular Exam Cardiovascular: Present RRR *Routine Abdominal Exam Abdominal: Present soft and normoactive bowel sounds; Absent tenderness *Routine Rectal Exam Patient deferred: visual exam *Routine Exam Patient deferred: penile exam *Routine Extremities Exam Extremities: Absent cyanosis, clubbing or edema *Routine Skin Exam Skin: Present warm; Absent rash *Routine Neurological Exam Neurological: Present alert, oriented X3 and moving all extremities; Absent altered mental status Results Data Completed and Pending Labs on day of discharge: Labs from last 24 hours 11/07/24 07:00 WBC 7.1 D RBC 3.84 L Hgb 11.8 L Hct 36.2 L MCV 94.3 H MCH 30.7 MCHC 32.6 RDW 13.9 Plt Count 267 MPV 9.5 Neut % (Auto) 84.1 H Lymph % (Auto) 10.3 [place] % (Auto) 5.1 Eos % (Auto) 0.0 L Baso % (Auto) 0.1 Neut # (Auto) 6.0 Lymph # (Auto) 0.7 [place] # (Auto) 0.4 Eos # (Auto) 0.0 Baso # (Auto) 0.0 Sodium 141 Potassium 3.8 Chloride 105 Carbon Dioxide 32 H Anion Gap 7.8 BUN 16 D Creatinine 0.60 L Estimated Creat Clear 145 Estimated GFR 144 Est GFR ( Amer) 175 Glucose 146 H Calcium 9.9 Magnesium 2.2 Total Bilirubin 0.2 AST 31 ALT 23 Alkaline Phosphatase 88 Total Protein 6.6 Albumin 3.7 Globulin 2.9 Albumin/Globulin Ratio 1.3 Preliminary micro results at discharge 11/05/24 22:33 Sputum Culture - Preliminary Sputum - Expectorated Sputum 11/05/24 19:30 Blood Culture - Preliminary Blood NO GROWTH AFTER 24 HOURS 11/05/24 19:30 Blood Culture - Preliminary Blood NO GROWTH AFTER 24 HOURS DS: Diagnosis Discharge Diagnosis (1) Acute on chronic respiratory failure with hypoxia and hypercapnia: Status: Acute Code(s): J96.21 - Acute and chronic respiratory failure with hypoxia; J96.22 - Acute and chronic respiratory failure with hypercapnia (2) Acute exacerbation of chronic obstructive pulmonary disease: Status: Acute Code(s): J44.1 - Chronic obstructive pulmonary disease with (acute) exacerbation (3) COVID: Status: Acute Code(s): U07.1 - COVID-19 (4) Tachycardia: Status: Acute Code(s): R00.0 - Tachycardia, unspecified (5) NSTEMI (non-ST elevated myocardial infarction): Status: Acute Code(s): I21.4 - Non-ST elevation (NSTEMI) myocardial infarction Meds Home Medications and Allergies Home Medications ?Medication ?Instructions ?Recorded ?Confirmed ?Type budesonide 0.5 mg/2 mL suspension 0.5 mg inhalation QIDP PRN lung 08/23/24 11/05/24 History for nebulization inflammation cyanocobalamin (vitamin B-12) 1,000 mcg IM WEEKLY Supplement 08/23/24 11/05/24 History 1,000 mcg/mL injection solution folic acid 1 mg tablet 1 mg PO DAILY 08/23/24 11/05/24 History formoterol fumarate 20 mcg/2 mL 20 mcg inhalation QIDP PRN lung 08/23/24 11/05/24 History solution for nebulization inflammation guaifenesin 600 mg tablet, 600 mg PO BID 08/23/24 11/05/24 History extended release 12 hr (Mucinex) montelukast 10 mg tablet 10 mg PO DAILY 08/23/24 11/05/24 History (Singulair) revefenacin 175 mcg/3 mL solution 175 mcg inhalation DAILY 08/23/24 11/05/24 History for nebulization (Yupelri) roflumilast 500 mcg tablet 500 mcg PO DAILY 08/23/24 11/05/24 History vedolizumab 300 mg intravenous 300 mg IV MONTHLY 08/23/24 11/05/24 History solution (Entyvio) carvedilol 6.25 mg tablet 6.25 mg PO BID 11/05/24 11/06/24 History pantoprazole 40 mg tablet,delayed 40 mg PO DAILY 11/05/24 11/05/24 History release trazodone 100 mg tablet 100 mg PO HS 11/06/24 11/06/24 History aspirin 81 mg chewable tablet 81 mg PO DAILY 30 days #30 tabs 11/07/24 Rx prednisone 20 mg tablet 40 mg (2 x 20 mg) PO DAILY 3 days 11/07/24 Rx #6 tabs New Prescriptions to Start Prescriptions: Sanchez Bentley prednisone Sanchez Wallace Allergies Allergy/AdvReac Type Severity Reaction Status Date / Time coconut Allergy Anaphylaxis Verified 08/23/24 10:04 mesalamine AdvReac Irritable Verified 08/23/24 10:03 Discharge Plan Disposition Patient Disposition: Home, Self-Care Condition: Fair Discharge Order Discharge Orders: Discharge Order (Routine); Ordered 11/07/24 Ordered By: Sanchez Wallace Follow up Plan Follow up with: Jack Becker MD [Primary Care Provider] - Enter time for follow up Prescriptions/Medication Reconciliation: New aspirin 81 mg Tablet,Chewable 81 mg PO DAILY 30 Days Qty: 30 0RF prednisone 20 mg tablet 40 mg PO DAILY 3 Days Qty: 6 0RF Continued cyanocobalamin (vitamin B-12) 1,000 mcg/mL Solution 1,000 mcg IM WEEKLY budesonide 0.5 mg/2 mL suspension for nebulization 0.5 mg inhalation QIDP PRN (Reason: lung inflammation) folic acid 1 mg tablet 1 mg PO DAILY montelukast [Singulair] 10 mg Tablet 10 mg PO DAILY formoterol fumarate 20 mcg/2 mL solution for nebulization 20 mcg INHALATION QIDP PRN (Reason: lung inflammation) roflumilast 500 mcg tablet 500 mcg PO DAILY guaifenesin [Mucinex] 600 mg Tablet Extended Release 12hr 600 mg PO BID Entyvio 300 mg Recon Soln 300 mg IV MONTHLY Yupelri 175 mcg/3 mL solution for nebulization 175 mcg INHALATION DAILY carvedilol 6.25 mg tablet 6.25 mg PO BID pantoprazole 40 mg tablet,delayed release (DR/EC) 40 mg PO DAILY trazodone 100 mg tablet 100 mg PO HS Problem Reconciliation Problems Reviewed?: Yes Patient Discharge Instructions ACTIVITY: Continue current activity DIET: continue same diet Additional Instructions: resume Paxlovid and complete course Patient Instructions: DI for Respiratory Failure, DI for COVID-19 (Suspected or Confirmed ) Print Language: French Providers Primary Care Provider: Jack Becker Admit Provider: Sanchez Wallace Attending Provider: Sanchez Wallace
--- NOTE | 2024-11-08 10:49 | SW/DCPLANNER ---
Spoke with patient on the phone. Patient stated that he got his medicine filled through [email or web address] and that he has made his follow up appointment through them also. Patient state that he is doing well and that he has no concerns or questions at this time. Saul Escalera
== END 2024-11-07 16:30 | disposition home or self-care (01) | DRG 177 ==
LOC: ER 18:21 → 2ND 20:57
PROVIDERS: Nurse Practitioner Family; Admitting Provider Internal Medicine Adolescent Medicine; Emergency Provider Emergency Medicine; PCP Internal Medicine Adolescent Medicine; Visit Provider Internal Medicine Adolescent Medicine
DX: U07.1 COVID-19 (principal); J12.82 Pneumonia due to coronavirus disease 2019; J96.21 Acute and chronic respiratory failure with hypoxia; J96.22 Acute and chronic respiratory failure with hypercapnia; K51.90 Ulcerative colitis, unspecified, without complications; J44.9 Chronic obstructive pulmonary disease, unspecified; I10 Essential (primary) hypertension; F17.211 Nicotine dependence, cigarettes, in remission; Z79.51 Long term (current) use of inhaled steroids; Z79.899 Other long term (current) drug therapy; Z79.82 Long term (current) use of aspirin
CPT/HCPCS: 36415; 71045; 80053; 82803; 83605; 83735; 83880; 84484; 85007; 85025; 85378; 85610; 86140; 87040; 87070; 87077; 87186; 87205; 87636; 93005; 94640; 94660; 94761; 99291; J0456; J1650; J2919; J3372; J3475; J7050; J7120; J7613; J7620